=== PATIENT | male | born 1985 | race Caucasian/White ===

== ENCOUNTER 2023-11-15 11:22 | Emergency (ER) | payer OTHER ==
[2023-11-15 11:46] VITALS: TEMP 98
[2023-11-15] MEDS ORDERED: diphenhydrAMINE 50 MG/ML 1 ML VIAL IVP STA (11:53)
[2023-11-15] MEDS ORDERED: SODIUM CHLORIDE 0.9% 1,000 ML IV ONE (11:56)
[2023-11-15] MEDS ORDERED: PROCHLORPERAZINE INJ 10 MG/2 ML VIAL IVP STA (11:57)
[2023-11-15] MEDS ORDERED: methylPREDNISolone SOD SUCCI 125 MG/2 ML VIAL IV STA (11:59)
--- NOTE | 2023-11-15 12:07 | ED ---
General Adult HPI - General Chief complaint: Neuro Symptoms/Deficit Stated complaint: dizziness-vision issue Time Seen by Provider: 11/15/23 11:31 Source: patient, RN notes reviewed Mode of arrival: ambulatory Limitations: no limitations - History of Present Illness Initial comments: 38 year old male presents to the emergency department for evaluation of headache x3-4 days. Patient states that he does not recall what he was doing and the headache came on. He does have a history of headaches and states this is similar in character to his prior. Denies nausea, vomiting. He does admit to some lightheadedness. He is ambulating well. He denies recent fever, chills. Denies recent head trauma. - Related Data Allergies Allergy/AdvReac Type Severity Reaction Status Date / Time No Known Allergies Allergy Verified 11/15/23 11:28 Review of Systems ROS Statement: Those systems with pertinent positive or pertinent negative responses have been documented in the HPI. ROS Other: All systems not noted in ROS Statement are negative. Past Medical History Past Medical History: Hypertension, Seizure Disorder History of Any Multi-Drug Resistant Organisms: None Reported Past Surgical History: No Surgical Hx Reported Additional Past Surgical History / Comment(s): hernia mesh Past Psychological History: No Psychological Hx Reported Smoking Status: Current every day smoker Past Alcohol Use History: None Reported Past Drug Use History: None Reported General Exam Limitations: no limitations General appearance: alert, in no apparent distress Head exam: Present: atraumatic, normocephalic, normal inspection Eye exam: Present: normal appearance, PERRL, EOMI. Absent: scleral icterus, conjunctival injection, periorbital swelling ENT exam: Present: normal exam, mucous membranes moist Neck exam: Present: normal inspection. Absent: tenderness, meningismus, lymphadenopathy Respiratory exam: Present: normal lung sounds bilaterally. Absent: respiratory distress, wheezes, rales, rhonchi, stridor Cardiovascular Exam: Present: regular rate, normal rhythm, normal heart sounds. Absent: systolic murmur, diastolic murmur, rubs, gallop, clicks GI/Abdominal exam: Present: soft, normal bowel sounds. Absent: distended, tenderness, guarding, rebound, rigid Extremities exam: Present: normal inspection, full ROM, normal capillary refill. Absent: tenderness, pedal edema, joint swelling, calf tenderness Back exam: Present: normal inspection Neurological exam: Present: alert, oriented X3, CN II-XII intact, normal gait Expanded Patient oriented to: Present: person, place, time Speech: Present: fluid speech Cranial nerves: EOM's Intact: Normal, Gag Reflex: Normal, Tongue Deviation: Normal (none), Nystagmus: Normal (none), Facial Sensation: Normal Ataxia: Absent: yes Cerebellar function: Finger to Nose: Normal, Heel to Clement: Normal Upper motor neuron: Pronator Drift: Normal Sensory exam: Upper Extremity Light Touch: Normal, Lower Extremity Light Touch: Normal Motor strength exam: RUE: 5, LUE: 5, RLE: 5, LLE: 5 Eye Response: (4) open spontaneously Motor Response: (6) obeys commands Verbal Response: (5) oriented [place] Total: 15 Course Vital Signs 11/15/23 11/15/23 11/15/23 11:25 13:24 15:33 Temperature 98 F Pulse Rate 82 76 83 Respiratory 18 18 17 Rate Blood Pressure 131/80 133/91 109/63 O2 Sat by Pulse 99 97 98 Oximetry Medical Decision Making - Medical Decision Making Was pt. sent in by a medical professional or institution (Dr. PA, CLAY DRY PRESS MIXER OPERATOR, urgent care, hospital, or prison...) When possible be specific @ -No Did you speak to anyone other than the patient for history (EMS, parent, family, police, friend...)? What history was obtained from this source @ -patients girlfriend Did you review nursing and triage notes (agree or disagree)? Why? @ -I reviewed and agree with nursing and triage notes Were old charts reviewed (outside hosp., previous admission, EMS record, old EKG, old radiological studies, urgent care reports/EKG's, prison records)? Report findings @ -No old charts were reviewed Differential Diagnosis (chest pain, altered mental status, abdominal pain women, abdominal pain men, vaginal bleeding, weakness, fever, dyspnea, syncope, headache, dizziness, GI bleed, back pain, seizure, CVA, palpatations, mental health, musculoskeletal)? @ -Differential Headache: Migraine, tension, cluster, carbon monoxide, central venous thrombosis, pension karma temporal arteritis, acute closure glaucoma, intercranial hemorrhage, mastoiditis, sinusitis, head injury, this is not meant to be an all-inclusive list. EKG interpreted by me (3pts min.). @ -EKG at 1246 shows sinus rhythm rate 79, [place] 145, QRS 105, QTQTc [id number] X-rays interpreted by me (1pt min.). @ -X-ray shows no acute infiltrate CT interpreted by me (1pt min.). @ -CT brain shows no acute intracranial hemorrhage U/S interpreted by me (1pt. min.). @ -None done What testing was considered but not performed or refused? (CT, X-rays, U/S, labs)? Why? @ -None What meds were considered but not given or refused? Why? @ -None Did you discuss the management of the patient with other professionals (professionals i.e. , PA, CLAY DRY PRESS MIXER OPERATOR, lab, RT, psych nurse, social service agency director, easement worker, teacher, chief environmental commitment officer, case aide)? Give summary @ -No Was smoking cessation discussed for >3mins.? @ -No Was critical care preformed (if so, how long)? @ -No Were there social determinants of health that impacted care today? How? (Homelessness, low income, unemployed, alcoholism, drug addiction, transportation, low edu. Level, literacy, decrease access to med. care, nursing home, rehab)? @ -No Was there de-escalation of care discussed even if they declined (Discuss DNR or withdrawal of care, Hospice)? DNR status @ -No What co-morbidities impacted this encounter? (DM, HTN, Smoking, COPD, CAD, Cancer, CVA, ARF, Chemo, Hep., AIDS, mental health diagnosis, sleep apnea, morbid obesity)? @ -None Was patient admitted / discharged? Hospital course, mention meds given and route, prescriptions, significant lab abnormalities, going to OR and other pertinent info. @ -discharged. Patient presented to the emergency department for evaluation of headache and lightheadedness. CT brain is obtained which shows no acute intr acranial hemorrhage. Laboratory studies obtained which were actually unremarkable including CBC, CMP, UA. EKG obtained which shows normal sinus rhythm. Patient was given 1 L normal saline, Benadryl, Compazine, and Solu- Medrol with minimal relief. The patient was given a dose of Toradol after his computed tomography scan report. Patient was reevaluated, neurologically intact. The pain had improved. Patient will be discharged home. Patient understanding and agreeable with plan. Return precautions discussed. Patient stable at time of discharge. Case discussed with Dr. Randall Undiagnosed new problem with uncertain prognosis? @ -No Drug Therapy requiring intensive monitoring for toxicity (Heparin, Nitro, Insulin, Cardizem)? @ -No Were any procedures done? @ -No Diagnosis/symptom? @ -headache Acute, or Chronic, or Acute on Chronic? @ -acute Uncomplicated (without systemic symptoms) or Complicated (systemic symptoms)? @ -uncomplicated Side effects of treatment? @ -No Exacerbation, Progression, or Severe Exacerbation? @ -No Poses a threat to life or bodily function? How? (Chest pain, [place], [place], pneumonia, PE, COPD, DKA, ARF, appy, cholecystitis, CVA, Diverticulitis, Homicidal, Suicidal, threat to staff... and all critical care pts) @ -No - Lab Data Result diagrams: 11/15/23 12:20 11/15/23 12:20 Lab Results 11/15/23 11/15/23 11/15/23 Range/Units 12:20 12:20 12:20 WBC 10.2 (3.8-10.6) k/uL RBC 4.77 (4.30-5.90) m/uL Hgb 14.9 (13.0-17.5) gm/dL Hct 42.5 (39.0-53.0) % MCV 89.1 (80.0-100.0) fL MCH 31.1 (25.0-35.0) pg MCHC 34.9 (31.0-37.0) g/dL RDW 12.6 (11.5-15.5) % Plt Count 237 (150-450) k/uL MPV 7.7 Neutrophils % 76 % Lymphocytes % 17 % Monocytes % 4 % Eosinophils % 1 % Basophils % 1 % Neutrophils # 7.7 (1.3-7.7) k/uL Lymphocytes # 1.8 (1.0-4.8) k/uL Monocytes # 0.4 (0-1.0) k/uL Eosinophils # 0.1 (0-0.7) k/uL Basophils # 0.1 (0-0.2) k/uL PT 10.2 (10.0-12.5) sec INR 0.9 (<1.2) APTT 25.1 (22.0-30.0) sec Sodium 138 (137-145) mmol/L Potassium 3.8 (3.5-5.1) mmol/L Chloride 102 (98-107) mmol/L Carbon Dioxide 26 (22-30) mmol/L Anion Gap 10 mmol/L BUN 6 L (9-20) mg/dL Creatinine 0.71 (0.66-1.25) mg/dL Est GFR (CKD-EPI)AfAm >90 (>60 ml/min/1.73 sqM) Est GFR (CKD-EPI)NonAf >90 (>60 ml/min/1.73 sqM) Glucose 93 (74-99) mg/dL Calcium 9.7 (8.4-10.2) mg/dL Total Bilirubin 0.3 (0.2-1.3) mg/dL AST 21 (17-59) U/L ALT 22 (4-49) U/L Alkaline Phosphatase 71 (38-126) U/L Total Protein 7.2 (6.3-8.2) g/dL Albumin 4.3 (3.5-5.0) g/dL Urine Color Urine Appearance (Clear) Urine pH (5.0-8.0) Ur Specific [place] (1.001-1.035) Urine Protein (Negative) Urine Glucose (UA) (Negative) Urine Ketones (Negative) Urine Blood (Negative) Urine Nitrite (Negative) Urine Bilirubin (Negative) Urine Urobilinogen (<2.0) mg/dL Ur Leukocyte Esterase (Negative) 11/15/23 Range/Units 12:20 WBC (3.8-10.6) k/uL RBC (4.30-5.90) m/uL Hgb (13.0-17.5) gm/dL Hct (39.0-53.0) % MCV (80.0-100.0) fL MCH (25.0-35.0) pg MCHC (31.0-37.0) g/dL RDW (11.5-15.5) % Plt Count (150-450) k/uL MPV Neutrophils % % Lymphocytes % % Monocytes % % Eosinophils % % Basophils % % Neutrophils # (1.3-7.7) k/uL Lymphocytes # (1.0-4.8) k/uL Monocytes # (0-1.0) k/uL Eosinophils # (0-0.7) k/uL Basophils # (0-0.2) k/uL PT (10.0-12.5) sec INR (<1.2) APTT (22.0-30.0) sec Sodium (137-145) mmol/L Potassium (3.5-5.1) mmol/L Chloride (98-107) mmol/L Carbon Dioxide (22-30) mmol/L Anion Gap mmol/L BUN (9-20) mg/dL Creatinine (0.66-1.25) mg/dL Est GFR (CKD-EPI)AfAm (>60 ml/min/1.73 sqM) Est GFR (CKD-EPI)NonAf (>60 ml/min/1.73 sqM) Glucose (74-99) mg/dL Calcium (8.4-10.2) mg/dL Total Bilirubin (0.2-1.3) mg/dL AST (17-59) U/L ALT (4-49) U/L Alkaline Phosphatase (38-126) U/L Total Protein (6.3-8.2) g/dL Albumin (3.5-5.0) g/dL Urine Color Colorless Urine Appearance Clear (Clear) Urine pH 6.5 (5.0-8.0) Ur Specific [place] 1.003 (1.001-1.035) Urine Protein Negative (Negative) Urine Glucose (UA) Negative (Negative) Urine Ketones Negative (Negative) Urine Blood Negative (Negative) Urine Nitrite Negative (Negative) Urine Bilirubin Negative (Negative) Urine Urobilinogen <2.0 (<2.0) mg/dL Ur Leukocyte Esterase Negative (Negative) Disposition Clinical Impression: Headache Disposition: HOME SELF-CARE Condition: Stable Instructions (If sedation given, give patient instructions): Acute Headache (ED) Additional Instructions: Please follow up with your primary care provider. Return to the emergency department for new or worsening symptoms. Is patient prescribed a controlled substance at d/c from ED?: No Referrals: John Rivas MD [Primary Care Provider] - 1-2 days
[2023-11-15 13:02] LABS: Basophils # (A) 0.1 k/uL (0-0.2); Basophils % (A) 1 %; Eosinophils # (A) 0.1 k/uL (0-0.7); Eosinophils % (A) 1 %; HCT 42.5 % (39.0-53.0); HGB 14.9 gm/dL (13.0-17.5); Lymphocytes # (A) 1.8 k/uL (1.0-4.8); Lymphocytes % (A) 17 %; MCH 31.1 pg (25.0-35.0); MCHC 34.9 g/dL (31.0-37.0); MCV 89.1 fL (80.0-100.0); Mean Platelet Volume 7.7; Monocytes # (A) 0.4 k/uL (0-1.0); Monocytes % (A) 4 %; Neutrophils # (A) 7.7 k/uL (1.3-7.7); Neutrophils % (A) 76 %; Platelet Count 237 k/uL (150-450); RBC 4.77 m/uL (4.30-5.90); RDW 12.6 % (11.5-15.5); WBC 10.2 k/uL (3.8-10.6)
[2023-11-15 13:04] LABS: ALT 22 U/L (4-49); AST 21 U/L (17-59); African American GFR (CKD) >90 (>60 ml/min/1.73 sqM); Albumin 4.3 g/dL (3.5-5.0); Alkaline Phosphatase 71 U/L (38-126); Anion Gap 10 mmol/L; Blood Urea Nitrogen 6 mg/dL (9-20); Calcium 9.7 mg/dL (8.4-10.2); Carbon Dioxide 26 mmol/L (22-30); Chloride 102 mmol/L (98-107); Glucose 93 mg/dL (74-99); Non-African American GFR(CKD) >90 (>60 ml/min/1.73 sqM); Potassium 3.8 mmol/L (3.5-5.1); Sodium 138 mmol/L (137-145); Total Bilirubin 0.3 mg/dL (0.2-1.3); Total Protein 7.2 g/dL (6.3-8.2)
[2023-11-15 13:12] LABS: INR 0.9 (<1.2); Partial Thromboplastin Time 25.1 sec (22.0-30.0); Prothrombin Time 10.2 sec (10.0-12.5)
--- NOTE | 2023-11-15 13:38 | CT ---
EXAMINATION TYPE: CT brain wo con DATE OF EXAM: 11/15/2023 COMPARISON: None INDICATION: Headache, weakness, pt said his regular dr thinks he has lesions on his brain DLP: 1196.4 mGycm, Automated exposure control for dose reduction was used. CONTRAST: None CT of the brain is performed utilizing 3 mm thick sections through the posterior fossa and 3 mm thick sections through the remaining calvarium. Study is performed within 24 hours of arrival to the hosp ital. No abnormal hyperdensity is present to suggest an acute intracranial hemorrhage. No mass lesion is evident. No acute infarcts are evident. Ventricles and sulci are appropriate for the patient age. Paranasal sinuses and mastoid air cells within the pliks-io-hogl are clear. IMPRESSION: 1. No acute intracranial process radiographically apparent. Follow-up MRI can be performed as clini dinorah indicated.
[2023-11-15 13:50] LABS: Appearance,Urine Clear (Clear); Bilirubin,Urine Negative (Negative); Blood,Urine Negative (Negative); Color,Urine Colorless; Glucose,Urine (UA) Negative (Negative); Ketones,Urine Negative (Negative); Leukocyte Esterase,Urine Negative (Negative); Nitrite,Urine Negative (Negative); PH, Urine 6.5 (5.0-8.0); Protein,Urine Negative (Negative); Specific Gravity,Urine 1.003 (1.001-1.035); Urobilinogen,Urine <2.0 mg/dL (<2.0)
[2023-11-15] MEDS ORDERED: KETOROLAC 15 MG/ML 1 ML VIAL IVP STA (14:17)
--- NOTE | 2023-11-15 15:19 | XR ---
EXAMINATION TYPE: XR chest 2V DATE OF EXAM: 11/15/2023 2:49 PM CLINICAL INDICATION:Male, 38 years old with history of cough; [facility] COMPARISON: None TECHNIQUE: XR chest 2V. Frontal and lateral views of the chest.. FINDINGS: Lines/Tubes/Devices: EKG leads overlie the chest. No indwelling lines are seen. Heart/mediastinum: Heart size is normal. Mediastinum appears normal. Pulmonary vascularity: Not increased, Lungs/Pleura: There is no evidence of pleural effusion, focal consolidation, or pneumothorax. Minimal platelike atelectasis suggested in the right mid to lower lung. Musculoskeletal: No acute osseous abnormality demonstrated in the limits of the exam. Mild asymmetri c elevation of the right hemidiaphragm. Other findings: None. IMPRESSION: No acute cardiopulmonary abnormality.
[2023-11-15 15:46] VITALS: BP 109/63; PULSE 83; RESP 17
== END 2023-11-15 15:35 | disposition home or self-care (01) ==
LOC: EC 11:22
DX: R51.9 Headache, unspecified (principal); I10 Essential (primary) hypertension; F17.200 Nicotine dependence, unspecified, uncomplicated
CPT/HCPCS: 36415; 93005; 80053; 85025; 85610; 85730; 81003; 71046; 70450; 99284; 96374; 96375 ×3; 96361; J1200; J0780; J2930; J1885

== ENCOUNTER 2023-12-19 20:32 | Inpatient (IN) | payer OTHER ==
[2023-12-19 20:50] LABS: Glucose,Whole Blood 96 mg/dL (70-110)
[2023-12-19] MEDS: diphenhydrAMINE 50 MG/ML 1 ML VIAL IVP STA (21:13)
[2023-12-19] MEDS: LORazepam 2 MG/ML INJ IV STA (21:41)
--- NOTE | 2023-12-19 21:51 | CT ---
EXAMINATION TYPE: CT brain wo con CT DLP: 2390.4 mGycm, Automated exposure control for dose reduction was used. DATE OF EXAM: 12/19/2023 9:33 PM COMPARISON: 11/15/2023. CLINICAL INDICATION:Male, 38 years old with history of Seizure, Seizure activity TECHNIQUE: Brain: Axial CT images of the brain were obtained with coronal and sagittal reformats created and rev iewed. Contrast used: None. Oral contrast used: None. FINDINGS: Brain: Extra-axial spaces: No abnormal extra-axial fluid collections. Ventricular system: Within normal limits Cerebral parenchyma: No acute intraparenchymal hemorrhage or mass effect. The tinajero-white junction is well differentiated. Cerebellum: Unremarkable. Mass effect: No evidence of midline shift. Intracranial vasculature: unremarkable Soft tissues: Normal. Calvarium/osseous structures: No depressed skull fracture. Paranasal sinuses and mastoid air cells: Mild scattered paranasal sinus disease. Visualized orbits: Orbital contents are intact. IMPRESSION: No acute intracranial process.
[2023-12-19 22:01] LABS: Basophils % (A) 1 %; Eosinophils # (A) 0.2 k/uL (0-0.7); Eosinophils % (A) 4 %; HCT 41.8 % (39.0-53.0); HGB 14.4 gm/dL (13.0-17.5); Lymphocytes # (A) 2.5 k/uL (1.0-4.8); Lymphocytes % (A) 41 %; MCH 31.2 pg (25.0-35.0); MCHC 34.4 g/dL (31.0-37.0); Mean Platelet Volume 8.1; Monocytes # (A) 0.4 k/uL (0-1.0); Monocytes % (A) 6 %; Neutrophils # (A) 2.9 k/uL (1.3-7.7); Neutrophils % (A) 47 %; Platelet Count 176 k/uL (150-450); RDW 12.6 % (11.5-15.5); WBC 6.1 k/uL (3.8-10.6)
--- NOTE | 2023-12-19 22:05 | ED ---
Seizure HPI - General Source: family, EMS Mode of arrival: EMS Limitations: no limitations - History of Present Illness MD Complaint: seizure, other <Shivam Marinelli - Last Filed: 12/19/23 23:03> - General Source: family, RN notes reviewed, old records reviewed <WiltonEnoch - Last Filed: 12/20/23 07:50> - General Chief Complaint: Seizure Stated Complaint: Seizure Time Seen by Provider: 12/19/23 21:03 - History of Present Illness Initial Comments: 37-year-old male brought in by EMS with reports of a seizure and altered mental status afterwards. No trauma reported minimal information initially available. After the patient's arrived she did state that she believes the patient took an overdose of amitriptyline and he has previously tried recently to overdose on Depakote and other medication. (Shivam Marinelli) - Related Data Home Medications Medication Instructions Recorded Confirmed Acetaminophen/Caffeine [Excedrin 2 tab PO Q6H PRN 12/19/23 12/19/23 Tension Headache] Amitriptyline HCl [Elavil] 25 mg PO HS 12/19/23 12/19/23 Butalb/Acetaminophen/Caffeine 1 tab PO Q8H PRN 12/19/23 12/19/23 [Fioricet 50-325-40] Ergocalciferol [Vitamin D2 (1250 1,250 mcg PO Q7D 12/19/23 12/19/23 Mcg = 11484 Iu)] Fluticasone Nasal [place] [Flonase 1 spr EA NOSTRIL DAILY 12/19/23 12/19/23 Nasal [place]] Loratadine [Claritin] 10 mg PO DAILY 12/19/23 12/19/23 Propranolol HCl [Propranolol HCl 80 mg PO DAILY 12/19/23 12/19/23 ER] Topiramate [Topamax] 100 mg PO BID 12/19/23 12/19/23 Valproic Acid [Depakene] 1,000 mg PO Q12H 12/19/23 12/19/23 levETIRAcetam [Keppra] 500 mg PO BID 12/19/23 12/19/23 lisinopriL [Zestril] 10 mg PO DAILY 12/19/23 12/19/23 Allergies Allergy/AdvReac Type Severity Reaction Status Date / Time No Known Allergies Allergy Verified 12/19/23 20:43 Review of Systems ROS Other: All systems not noted in ROS Statement are negative. Limitations: ROS unobtainable due to patients medical condition <Shivam Marinelli - Last Filed: 12/19/23 23:03> ROS Other: All systems not noted in ROS Statement are negative. <WiltonEnoch - Last Filed: 12/20/23 07:50> ROS Statement: Those systems with pertinent positive or pertinent negative responses have been documented in the HPI. Past Medical History Past Medical History: Hypertension, Seizure Disorder History of Any Multi-Drug Resistant Organisms: None Reported Past Surgical History: No Surgical Hx Reported Additional Past Surgical History / Comment(s): hernia mesh Past Psychological History: No Psychological Hx Reported Smoking Status: Current every day smoker Past Alcohol Use History: None Reported Past Drug Use History: None Reported <Shivam Marinelli - Last Filed: 12/19/23 23:03> General Exam Limitations: no limitations General appearance: obtunded Head exam: Present: atraumatic, normocephalic, normal inspection Eye exam: Present: normal appearance, PERRL, EOMI. Absent: scleral icterus, conjunctival injection, periorbital swelling ENT exam: Present: normal exam, mucous membranes moist Neck exam: Present: normal inspection, full ROM, other (No stridor JVD or bruits). Absent: tenderness, meningismus, lymphadenopathy Respiratory exam: Present: normal lung sounds bilaterally. Absent: respiratory distress, wheezes, rales, rhonchi, stridor Cardiovascular Exam: Present: tachycardia GI/Abdominal exam: Present: soft, normal bowel sounds. Absent: distended, tenderness, guarding, rebound, rigid, bruit, pulsatile mass Rectal exam: Present: deferred Extremities exam: Present: normal inspection, full ROM, normal capillary refill. Absent: tenderness, pedal edema, joint swelling, calf tenderness Back exam: Present: normal inspection Neurological exam: Present: altered. Absent: motor sensory deficit Psychiatric exam: Present: other (Unable to evaluate) Skin exam: Present: warm, dry, intact, normal color. Absent: rash <YvesShivam - Last Filed: 12/19/23 23:03> - General Exam Comments Initial Comments: Is a well-developed well-nourished unresponsive male he does respond this painful stimulus however. He does demonstrate some extraparametal type signs. (Shivam Marinelli) Course <Shivam Marinelli - Last Filed: 12/19/23 23:03> Vital Signs 12/19/23 12/19/23 12/19/23 20:36 20:47 20:54 Temperature 96.9 F L Pulse Rate 146 H 159 H 134 H Respiratory 26 H 26 H 20 Rate Blood Pressure 156/113 138/107 138/107 O2 Sat by Pulse 98 98 97 Oximetry Fraction of Inspired Oxygen (FIO2) 12/19/23 12/19/23 12/19/23 22:30 23:00 23:30 Temperature Pulse Rate 138 H 131 H 128 H Respiratory 12 18 12 Rate Blood Pressure 160/107 118/86 O2 Sat by Pulse 96 98 97 Oximetry Fraction of Inspired Oxygen (FIO2) 12/19/23 12/20/23 12/20/23 23:55 00:07 00:47 Temperature Pulse Rate Respiratory Rate Blood Pressure O2 Sat by Pulse Oximetry Fraction of 100 100 50 Inspired Oxygen (FIO2) 12/20/23 12/20/23 12/20/23 01:21 01:30 01:45 Temperature 97.6 F Pulse Rate 108 H 106 H 104 H Respiratory 20 21 24 Rate Blood Pressure 121/92 121/92 117/84 O2 Sat by Pulse 99 99 99 Oximetry Fraction of Inspired Oxygen (FIO2) 12/20/23 12/20/23 12/20/23 02:30 02:45 03:00 Temperature Pulse Rate 92 91 89 Respiratory 30 H 33 H 33 H Rate Blood Pressure 111/78 110/76 110/76 O2 Sat by Pulse 99 99 99 Oximetry Fraction of Inspired Oxygen (FIO2) 12/20/23 12/20/23 12/20/23 03:15 03:45 04:15 Temperature Pulse Rate 87 83 81 Respiratory 29 H 28 H 25 H Rate Blood Pressure 112/80 113/81 113/86 O2 Sat by Pulse 99 99 100 Oximetry Fraction of Inspired Oxygen (FIO2) 12/20/23 12/20/23 12/20/23 04:45 04:53 05:30 Temperature Pulse Rate 77 75 72 Respiratory 28 H 17 33 H Rate Blood Pressure 115/88 115/88 123/90 O2 Sat by Pulse 100 100 100 Oximetry Fraction of Inspired Oxygen (FIO2) 12/20/23 12/20/23 12/20/23 06:00 07:00 07:27 Temperature 97.3 F L Pulse Rate 72 73 Respiratory 20 20 Rate Blood Pressure 133/97 104/79 O2 Sat by Pulse 100 100 Oximetry Fraction of 40 Inspired Oxygen (FIO2) 12/20/23 07:30 Temperature Pulse Rate 72 Respiratory 20 Rate Blood Pressure 109/82 O2 Sat by Pulse 100 Oximetry Fraction of Inspired Oxygen (FIO2) - Reevaluation(s) Reevaluation #1: 12/19/23 23:03 The patient's care will be endorsed to Dr. Núñez at shift change (Shivam Marinelli) Procedures - Intubation Sedative: Etomidate Mg Given: 20 Paralytic: Rocuronium Mg Given: 50 Laryngoscope: other (glidescope) Size: 4 ET Tube Size: 8 Tube Secured Depth (cm): 26 Tube Secured Location: lips Tube Placement Confirmation: visualized tube passing through cords, equal breath sounds bilaterally, no breath sounds over epigastrium, confirmation by capnometry Patient Tolerated Procedure: no complications <Enoch Núñez - Last Filed: 12/20/23 07:50> Medical Decision Making - Lab Data Result diagrams: 12/19/23 21:16 12/19/23 21:16 - EKG Data -: EKG Interpreted by Me <Shivam Marinelli - Last Filed: 12/19/23 23:03> - Lab Data Result diagrams: 12/19/23 21:16 12/19/23 21:16 - EKG Data -: EKG Interpreted by Me <Enoch Núñez - Last Filed: 12/20/23 07:50> - Medical Decision Making Was pt. sent in by a medical professional or institution (, PA, FOOD PRODUCTION ASSOCIATE, urgent care, hospital, or detention...) When possible be specific @ -No Did you speak to anyone other than the patient for history (EMS, parent, family, police, friend...)? What history was obtained from this source @ -Yes, patient's significant other who provided most of the patient's past medical history. Did you review nursing and triage notes (agree or disagree)? Why? @ -I reviewed and agree with nursing and triage notes Were old charts reviewed (outside hosp., previous admission, EMS record, old EKG, old radiological studies, urgent care reports/EKG's, detention records)? Report findings @ -Old charts reviewed including EKG Differential Diagnosis (chest pain, altered mental status, abdominal pain women, abdominal pain men, vaginal bleeding, weakness, fever, dyspnea, syncope, headache, dizziness, GI bleed, back pain, seizure, CVA, palpatations, mental health, musculoskeletal)? @ -Differential Altered Mental Status: Hypoglycemia, DKA, hypercapnia, ETOH, overdose, CO poisoning, trauma, myxedema coma, HTN encephalopathy, infection, encephalitis, psychosis, intercranial hemorrhage, hepatic encephalopathy, meningitis, CVA, this is not meant to be an all-inclusive list EKG interpreted by me (3pts min.). @ -As above X-rays interpreted by me (1pt min.). @ -Preintubation chest x-ray as well as KUB x-ray unremarkable for any obvious acute abnormality. Postintubation chest x-ray shows adequate placement of the ET tube and NG tube. CT interpreted by me (1pt min.). @ -CT brain reveals no evidence of acute intracranial process. U/S interpreted by me (1pt. min.). @ -None done What testing was considered but not performed or refused? (CT, X-rays, U/S, labs)? Why? @ -None What meds were considered but not given or refused? Why? @ -None Did you discuss the management of the patient with other professionals (professionals i.e. , PA, FOOD PRODUCTION ASSOCIATE, lab, RT, psych nurse, social service manager, set up operator, teacher, personal banking officer, manager case management)? Give summary @ -I discussed with Dr. Elliott of ICU after evaluated the patient myself as well as the labs and EKG. We are both in agreement of intubation for the patient as his GCS at best is 9. Concern for airway protection at this time. He was also in agreement with the plan for bicarb pushes, as well as starting a bicarb drip. He accepted the patient to the ICU. I spoke with the admitting team, CHARLIE Little of [facility] who accepted the patient. Was smoking cessation discussed for >3mins.? @ -No Was critical care preformed (if so, how long)? @ -Yes, 35 minutes. Were there social determinants of health that impacted care today? How? (Homelessness, low income, unemployed, alcoholism, drug addiction, transportation, low edu. Level, literacy, decrease access to med. care, fdc, rehab)? @ -No Was there de-escalation of care discussed even if they declined (Discuss DNR or withdrawal of care, Hospice)? DNR status @ -No What co-morbidities impacted this encounter? (DM, HTN, Smoking, COPD, CAD, Cancer, CVA, ARF, Chemo, Hep., AIDS, mental health diagnosis, sleep apnea, morbid obesity)? @ -Prior overdose attempts Was patient admitted / discharged? Hospital course, mention meds given and route, prescriptions, significant lab abnormalities, going to OR and other pertinent info. @ -Patient signed out to me pending results of workup. I inherited care shortly after 2300. I reviewed the workup, as well as EKG findings after they obtain the new EKG. Patient's difficult other is now at bedside and is able provide history. She is concerned that the patient overdosed on his amitriptyline, as he was taking pills of it earlier and just recently got a new prescription in the last 2 days. He is supposed to take 25 mg nightly however patient's mother is concerned as she saw him taking multiple pills of it earlier when he left the house. She did not see him again until after he arrived here. The pill bottle is missing. It was 1 month prescription of 25 mg nightly amitriptyline. Patient has multiple suicide attempts via overdose in the last month. Presents for further evaluation.If patient took all these pills, then he would have taken a total of 750 mg of amitriptyline.Patient has agitation, possible breakthrough seizure, tachycardia, right bundle branch block morphology, prolonged QRS, as well as pupils are dilated to approximately 4 mm. All of these are signs and symptoms of a TCA overdose. Is consistent with the story from patient's can other as well as the UDS being positive for TCAs. Poison control has been consulted over concern for this however EKG does show prolonged QRS as well as what appears to be development of an incomplete right bundle branch block, both concerning for TCA overdose. Patient's laboratory studies are remarkable for decreased carbon dioxide of 18, as well as a positive UDS for TCA. Remainder the labs within acceptable limits. I discussed with Dr. Elliott of ICU after evaluated the patient myself as well as the labs and EKG. We are both in agreement of intubation for the patient as his GCS at best is 9. Concern for airway protection at this time. He was also in agreement with the plan for bicarb pushes, as well as starting a bicarb drip. He accepted the patient to the ICU. I spoke with the admitting team, CHARLIE Little of [facility] who accepted the patient. Patient successfully intubated for airway protection with NG tube in place. He was started on a propofol drip. Will continue the bicarb drip. Patient has multiple peripheral IVs. He will be admitted to the ICU. Poison control is aw are of admission and intubation. Undiagnosed new problem with uncertain prognosis? @ -No Drug Therapy requiring intensive monitoring for toxicity (Heparin, Nitro, Insulin, Cardizem)? @ -No Were any procedures done? @ -Intubation Diagnosis/symptom? @ -TCA overdose, altered mental status, intentional overdose, seizure activity Acute, or Chronic, or Acute on Chronic? @ -Acute Uncomplicated (without systemic symptoms) or Complicated (systemic symptoms)? @ -Complicated Side effects of treatment? @ -No Exacerbation, Progression, or Severe Exacerbation? @ -No Poses a threat to life or bodily function? How? (Chest pain, USA, MS, pneumonia, PE, COPD, DKA, ARF, appy, cholecystitis, CVA, Diverticulitis, Homicidal, Suicidal, threat to staff... and all critical care pts) @ -Yes (Enoch Núñez) - Lab Data Lab Results 12/19/23 12/19/23 12/19/23 Range/Units 20:49 21:16 21:16 WBC 6.1 (3.8-10.6) k/uL RBC 4.60 (4.30-5.90) m/uL Hgb 14.4 (13.0-17.5) gm/dL Hct 41.8 (39.0-53.0) % MCV 91.0 (80.0-100.0) fL MCH 31.2 (25.0-35.0) pg MCHC 34.4 (31.0-37.0) g/dL RDW 12.6 (11.5-15.5) % Plt Count 176 (150-450) k/uL MPV 8.1 Neutrophils % 47 % Lymphocytes % 41 % Monocytes % 6 % Eosinophils % 4 % Basophils % 1 % Neutrophils # 2.9 (1.3-7.7) k/uL Lymphocytes # 2.5 (1.0-4.8) k/uL Monocytes # 0.4 (0-1.0) k/uL Eosinophils # 0.2 (0-0.7) k/uL Basophils # 0.0 (0-0.2) k/uL Sodium (137-145) mmol/L Potassium (3.5-5.1) mmol/L Chloride (98-107) mmol/L Carbon Dioxide (22-30) mmol/L Anion Gap mmol/L BUN (9-20) mg/dL Creatinine (0.66-1.25) mg/dL Est GFR (CKD-EPI)AfAm (>60 ml/min/1.73 sqM) Est GFR (CKD-EPI)NonAf (>60 ml/min/1.73 sqM) Glucose (74-99) mg/dL POC Glucose (mg/dL) 96 (70-110) mg/dL POC Glu Screw Machine Adjuster Automatic ID Christiano Diallo Plasma Lactic Acid Emre (0.7-2.0) mmol/L Calcium (8.4-10.2) mg/dL Magnesium (1.6-2.3) mg/dL Total Bilirubin (0.2-1.3) mg/dL AST (17-59) U/L ALT (4-49) U/L Alkaline Phosphatase (38-126) U/L Ammonia (<30) umol/L Creatine Kinase (55-170) U/L Troponin I (0.000-0.034) ng/mL Total Protein (6.3-8.2) g/dL Albumin (3.5-5.0) g/dL Lipase (23-300) U/L Urine Color Colorless Urine Appearance Clear (Clear) Urine pH 7.0 (5.0-8.0) Ur Specific [place] 1.010 (1.001-1.035) Urine Protein Negative (Negative) Urine Glucose (UA) Negative (Negative) Urine Ketones Negative (Negative) Urine Blood Negative (Negative) Urine Nitrite Negative (Negative) Urine Bilirubin Negative (Negative) Urine Urobilinogen <2.0 (<2.0) mg/dL Ur Leukocyte Esterase Negative (Negative) Salicylates mg/dL Urine Opiates Screen Not Detected (NotDetected) Ur Oxycodone Screen Not Detected (NotDetected) Urine Methadone Screen Not Detected (NotDetected) Acetaminophen ug/mL Ur Barbiturates Screen Not Detected (NotDetected) Valproic Acid ug/mL U Tricyclic Antidepress Detected H (NotDetected) Ur Phencyclidine Scrn Not Detected (NotDetected) Ur Amphetamines Screen Not Detected (NotDetected) U Methamphetamines Scrn Not Detected (NotDetected) U Benzodiazepines Scrn Not Detected (NotDetected) Urine Cocaine Screen Not Detected (NotDetected) U Marijuana (THC) Screen Not Detected (NotDetected) Serum Alcohol mg/dL 12/19/23 12/19/23 12/19/23 Range/Units 21:16 21:16 21:16 WBC (3.8-10.6) k/uL RBC (4.30-5.90) m/uL Hgb (13.0-17.5) gm/dL Hct (39.0-53.0) % MCV (80.0-100.0) fL MCH (25.0-35.0) pg MCHC (31.0-37.0) g/dL RDW (11.5-15.5) % Plt Count (150-450) k/uL MPV Neutrophils % % Lymphocytes % % Monocytes % % Eosinophils % % Basophils % % Neutrophils # (1.3-7.7) k/uL Lymphocytes # (1.0-4.8) k/uL Monocytes # (0-1.0) k/uL Eosinophils # (0-0.7) k/uL Basophils # (0-0.2) k/uL Sodium 140 (137-145) mmol/L Potassium 3.7 (3.5-5.1) mmol/L Chloride 111 H (98-107) mmol/L Carbon Dioxide 18 L (22-30) mmol/L Anion Gap 11 mmol/L BUN 10 (9-20) mg/dL Creatinine 0.79 (0.66-1.25) mg/dL Est GFR (CKD-EPI)AfAm >90 (>60 ml/min/1.73 sqM) Est GFR (CKD-EPI)NonAf >90 (>60 ml/min/1.73 sqM) Glucose 91 (74-99) mg/dL POC Glucose (mg/dL) (70-110) mg/dL POC Glu Screw Machine Adjuster Automatic ID Plasma Lactic Acid Emre 1.2 (0.7-2.0) mmol/L Calcium 9.4 (8.4-10.2) mg/dL Magnesium 2.0 (1.6-2.3) mg/dL Total Bilirubin 0.3 (0.2-1.3) mg/dL AST 20 (17-59) U/L ALT 16 (4-49) U/L Alkaline Phosphatase 66 (38-126) U/L Ammonia (<30) umol/L Creatine Kinase 62 (55-170) U/L Troponin I <0.012 (0.000-0.034) ng/mL Total Protein 7.3 (6.3-8.2) g/dL Albumin 4.5 (3.5-5.0) g/dL Lipase (23-300) U/L Urine Color Urine Appearance (Clear) Urine pH (5.0-8.0) Ur Specific [place] (1.001-1.035) Urine Protein (Negative) Urine Glucose (UA) (Negative) Urine Ketones (Negative) Urine Blood (Negative) Urine Nitrite (Negative) Urine Bilirubin (Negative) Urine Urobilinogen (<2.0) mg/dL Ur Leukocyte Esterase (Negative) Salicylates mg/dL Urine Opiates Screen (NotDetected) Ur Oxycodone Screen (NotDetected) Urine Methadone Screen (NotDetected) Acetaminophen ug/mL Ur Barbiturates Screen (NotDetected) Valproic Acid ug/mL U Tricyclic Antidepress (NotDetected) Ur Phencyclidine Scrn (NotDetected) Ur Amphetamines Screen (NotDetected) U Methamphetamines Scrn (NotDetected) U Benzodiazepines Scrn (NotDetected) Urine Cocaine Screen (NotDetected) U Marijuana (THC) Screen (NotDetected) Serum Alcohol mg/dL 12/19/23 12/19/23 Range/Units 22:30 23:20 WBC (3.8-10.6) k/uL RBC (4.30-5.90) m/uL Hgb (13.0-17.5) gm/dL Hct (39.0-53.0) % MCV (80.0-100.0) fL MCH (25.0-35.0) pg MCHC (31.0-37.0) g/dL RDW (11.5-15.5) % Plt Count (150-450) k/uL MPV Neutrophils % % Lymphocytes % % Monocytes % % Eosinophils % % Basophils % % Neutrophils # (1.3-7.7) k/uL Lymphocytes # (1.0-4.8) k/uL Monocytes # (0-1.0) k/uL Eosinophils # (0-0.7) k/uL Basophils # (0-0.2) k/uL Sodium (137-145) mmol/L Potassium (3.5-5.1) mmol/L Chloride (98-107) mmol/L Carbon Dioxide (22-30) mmol/L Anion Gap mmol/L BUN (9-20) mg/dL Creatinine (0.66-1.25) mg/dL Est GFR (CKD-EPI)AfAm (>60 ml/min/1.73 sqM) Est GFR (CKD-EPI)NonAf (>60 ml/min/1.73 sqM) Glucose (74-99) mg/dL POC Glucose (mg/dL) (70-110) mg/dL POC Glu Screw Machine Adjuster Automatic ID Plasma Lactic Acid Emre (0.7-2.0) mmol/L Calcium (8.4-10.2) mg/dL Magnesium (1.6-2.3) mg/dL Total Bilirubin (0.2-1.3) mg/dL AST (17-59) U/L ALT (4-49) U/L Alkaline Phosphatase (38-126) U/L Ammonia 14 (<30) umol/L Creatine Kinase (55-170) U/L Troponin I (0.000-0.034) ng/mL Total Protein (6.3-8.2) g/dL Albumin (3.5-5.0) g/dL Lipase 55 (23-300) U/L Urine Color Urine Appearance (Clear) Urine pH (5.0-8.0) Ur Specific [place] (1.001-1.035) Urine Protein (Negative) Urine Glucose (UA) (Negative) Urine Ketones (Negative) Urine Blood (Negative) Urine Nitrite (Negative) Urine Bilirubin (Negative) Urine Urobilinogen (<2.0) mg/dL Ur Leukocyte Esterase (Negative) Salicylates <1.0 mg/dL Urine Opiates Screen (NotDetected) Ur Oxycodone Screen (NotDetected) Urine Methadone Screen (NotDetected) Acetaminophen <10.0 ug/mL Ur Barbiturates Screen (NotDetected) Valproic Acid 23.0 ug/mL U Tricyclic Antidepress (NotDetected) Ur Phencyclidine Scrn (NotDetected) Ur Amphetamines Screen (NotDetected) U Methamphetamines Scrn (NotDetected) U Benzodiazepines Scrn (NotDetected) Urine Cocaine Screen (NotDetected) U Marijuana (THC) Screen (NotDetected) Serum Alcohol <10 mg/dL - EKG Data EKG Comments: EKG shows a sinus tachycardia of 143 QRS 120 QT/QTc 309/392 moderate interventricular conduction delay indeterminate axis (Shivam Marinelli) 12-lead Electrocardiogram Interpretation Note EKG was reviewed and interpreted by myself. 12-lead ECG performed at 2324 is interpreted by me as revealing sinus tachycardia at a rate of 122 beats per minute. Incomplete right bundle branch block. PA interval is 173 ms, QRS duration is 113 ms, QTc is 375 ms. [place] is normal.. There were no ST or T wave abnormalities to suggest myocardial ischemia or injury. R wave progression across the precordium was satisfactory. By my interpretation this EKG is non- diagnostic for acute ischemia. (Enoch Núñez) Critical Care Time Critical Care Time: Yes Total Critical Care Time: 35 <Enoch Núñez - Last Filed: 12/20/23 07:50> Disposition <Shivam Marinelli - Last Filed: 12/19/23 23:03> Time of Disposition: 00:01 <Enoch Núñez - Last Filed: 12/20/23 07:50> Clinical Impression: Generalized seizure, Drug overdose, intentional, TCA (tricyclic antidepressant) overdose of undetermined intent, Airway intubation performed without difficulty Disposition: ADMITTED IP TO THIS HOSP Condition: Serious
[2023-12-19 22:36] LABS: ALT 16 U/L (4-49); AST 20 U/L (17-59); African American GFR (CKD) >90 (>60 ml/min/1.73 sqM); Albumin 4.5 g/dL (3.5-5.0); Alkaline Phosphatase 66 U/L (38-126); Anion Gap 11 mmol/L; Blood Urea Nitrogen 10 mg/dL (9-20); Calcium 9.4 mg/dL (8.4-10.2); Carbon Dioxide 18 mmol/L (22-30); Chloride 111 mmol/L (98-107); Creatine Kinase 62 U/L (55-170); Glucose 91 mg/dL (74-99); Non-African American GFR(CKD) >90 (>60 ml/min/1.73 sqM); Potassium 3.7 mmol/L (3.5-5.1); Sodium 140 mmol/L (137-145); Total Bilirubin 0.3 mg/dL (0.2-1.3); Total Protein 7.3 g/dL (6.3-8.2)
[2023-12-19] MEDS: SODIUM CHLORIDE 0.9% 1,000 ML IV STA ×3 (22:38→23:48)
--- NOTE | 2023-12-19 23:33 | XR ---
EXAM: XR Chest, 1 View CLINICAL HISTORY: Overdose TECHNIQUE: Frontal view of the chest. COMPARISON: 11/15/2023. FINDINGS: Hypoventilation. Elevated right hemidiaphragm. Heart is normal in size. Right basilar atelectasis. No pleural effusion or pneumothorax. Bones are unremarkable. IMPRESSION: Hypoventilation. Elevated right hemidiaphragm with overlying right basilar atelectasis.
--- NOTE | 2023-12-19 23:35 | XR ---
EXAM: XR Abdomen, 2 Views CLINICAL HISTORY: Overdose TECHNIQUE: Two supine views of the abdomen/pelvis. COMPARISON: No relevant prior studies available. FINDINGS: No radiopaque foreign body. No bowel obstruction or ileus. No abnormal calcifications. Bones are unremarkable. IMPRESSION: No acute abnormality.
[2023-12-19] MEDS: SODIUM BICARB 8.4% 50 ML SYR (1 MEQ/ML) IV STA ×2 (23:44→23:46)
[2023-12-19 23:53] LABS: Appearance,Urine Clear (Clear); Bilirubin,Urine Negative (Negative); Blood,Urine Negative (Negative); Color,Urine Colorless; Glucose,Urine (UA) Negative (Negative); Ketones,Urine Negative (Negative); Leukocyte Esterase,Urine Negative (Negative); Nitrite,Urine Negative (Negative); Protein,Urine Negative (Negative); Urobilinogen,Urine <2.0 mg/dL (<2.0)
[2023-12-19] MEDS: ONDANSETRON 4 MG/2 ML VIAL IVP STA (23:53)
[2023-12-19] MEDS: ROCURONIUM 10 MG/ML (5 ML VIAL) IV STA (23:55)
[2023-12-19] MEDS: ETOMIDATE 2 MG/ML 10 ML VIAL IVP STA (23:55)
[2023-12-20 00:04] LABS: Acetaminophen <10.0 ug/mL; Alcohol <10 mg/dL; Lipase 55 U/L (23-300); Salicylate <1.0 mg/dL
[2023-12-20] MEDS ORDERED: NALOXONE 0.4 MG/ML 1 ML VIAL IV PRN (00:13)
[2023-12-20] MEDS: DEXTROSE 5% IN WATER 1,000 ML with SODIUM BICARB (1 MEQ/ML) 150 ML IV SCH (00:13)
[2023-12-20 00:14] LABS: Amphetamine Screen,Urine Not Detected (NotDetected); Barbiturate Screen,Urine Not Detected (NotDetected); Benzodiazepines Screen,Urine Not Detected (NotDetected); Cocaine Screen,Urine Not Detected (NotDetected); Methadone Screen, Urine Not Detected (NotDetected); Opiate Screen,Urine Not Detected (NotDetected); Oxycodone Screen, Urine Not Detected (NotDetected); Phencyclidine Screen,Urine Not Detected (NotDetected); Tricyclic Antidepressant,Urine Detected (NotDetected); Urn Cannabinoid Scrn Not Detected (NotDetected)
--- NOTE | 2023-12-20 00:21 | XR ---
EXAM: XR Chest, 1 View CLINICAL HISTORY: XR Reason: Intubation TECHNIQUE: Frontal view of the chest. COMPARISON: November 15, 2023. FINDINGS: Lungs: Small amount of right lung base infiltrate or atelectasis. The lungs are otherwise clear. Pleural space: Unremarkable. No pneumothorax. Heart: Unremarkable. No cardiomegaly. Mediastinum: Unremarkable. Normal mediastinal contour. Bones/joints: Unremarkable. No acute fracture. Tubes, lines and devices: Endotracheal tube tip located 1 cm from the grabiel. The NG tube extends into the stomach. IMPRESSION: 1. Small amount of right lung base infiltrate or atelectasis. The lungs are otherwise clear. 2. Endotracheal tube tip located 1 cm from the grabiel. The NG tube extends into the stomach.
[2023-12-20 00:40] LABS: ABG Base Excess -3.5 mmol/L; ABG HCO3 22 mmol/L (21-25); ABG Oxygen Saturation 99.7 % (94-97); ABG PCO2 39 mmHg (35-45); ABG PH 7.36 (7.35-7.45); ABG PO2 >400 mmHg (83-108); ABG TCO2 23 mmol/L (19-24); Allen Test Performed? Yes
[2023-12-20 05:44] LABS: ABG Base Excess 0.7 mmol/L; ABG HCO3 25 mmol/L (21-25); ABG Oxygen Saturation 99.7 % (94-97); ABG PCO2 38 mmHg (35-45); ABG PH 7.43 (7.35-7.45); ABG PO2 180 mmHg (83-108); ABG TCO2 26 mmol/L (19-24); Allen Test Performed? Yes
[2023-12-20] MEDS: ENOXAPARIN 40 MG/0.4 ML SYRINGE SQ SCH (10:00)
[2023-12-20] MEDS: PANTOPRAZOLE 40 MG/10 ML VIAL IVP SCH (10:04)
[2023-12-20 10:55] LABS: Glucose,Whole Blood 81 mg/dL (70-110)
[2023-12-20] MEDS: DEXMEDETOMIDINE/0.9% NACL(PMX) 400 MCG in EMPTY BAG 1 BAG IV SCH (11:17)
--- NOTE | 2023-12-20 12:01 | XR ---
EXAMINATION TYPE: XR chest 1V portable DATE OF EXAM: 12/20/2023 CLINICAL HISTORY: ET tube placement. TECHNIQUE: Single AP portable upright view of the chest is obtained. COMPARISON: Chest x-ray from one day earlier FINDINGS: Stable positioning of endotracheal and orogastric tubes. Persistent right infrahilar linea r atelectasis. Left lung remains clear. Cardiac silhouette size is stable and within normal limits. O sseous structures are intact. IMPRESSION: 1. Satisfactory positioning of endotracheal and orogastric tubes. 2. Right mid to lower lung linear atelectasis. Left lung is clear.
--- NOTE | 2023-12-20 13:48 | P.CNPUL ---
History of Present Illness Consult date: 12/20/23 Requesting physician: Low Vera Reason for consult: other (ICU management) Chief complaint: Amitriptyline overdose History of present illness: This is a 37-year-old white male with history of depression, history of seizures, brought into the ER yesterday with what seems to be amitriptyline ov erdose. Patient took relatively a dose of 750 mg Toprol according to the ER physician. This was based on the fact that his found the bottle empty, and the patient had previous history of doing the same. In the ER, patient was down there for few hours, and I was notified about this patient late in the evening with his mental status getting worse, and the patient becoming less and less responsive to painful stimuli. Hence I recommended intubating the patient to protect his airways, and to transfer the patient to the ICU. I did see the patient today in the ER and shortly afterward he was transferred to the ICU. Patient is now on assist-control rate of 20 tidal volume 450 FiO2 40%, and PEEP of 5. ABG showed a pO2 of 180 pCO2 38 pH of 7.40. Chest x-ray showed no evidence of infiltrate. Patient is on propofol at 50 mcg/kg/min, he is also receiving sodium bicarb, 3 A in D5W running at 150 cc/h. This morning are pending. ABG this morning was noted. EKG from earlier this morning was also noted slight conduction delay in the QRS Review of Systems ROS unobtainable: due to endotracheal tube Past Medical History Past Medical History: Hypertension, Seizure Disorder History of Any Multi-Drug Resistant Organisms: None Reported Past Surgical History: No Surgical Hx Reported Additional Past Surgical History / Comment(s): hernia mesh Past Psychological History: No Psychological Hx Reported Smoking Status: Current every day smoker Past Alcohol Use History: None Reported Past Drug Use History: None Reported Medications and Allergies Home Medications Medication Instructions Recorded Confirmed Type Acetaminophen/Caffeine [Excedrin 2 tab PO Q6H PRN 12/19/23 12/19/23 History Tension Headache] Amitriptyline HCl [Elavil] 25 mg PO HS 12/19/23 12/19/23 History Butalb/Acetaminophen/Caffeine 1 tab PO Q8H PRN 12/19/23 12/19/23 History [Fioricet 50-325-40] Ergocalciferol [Vitamin D2 (1250 1,250 mcg PO Q7D 12/19/23 12/19/23 History Mcg = 29310 Iu)] Fluticasone Nasal [place] [Flonase 1 spr EA NOSTRIL DAILY 12/19/23 12/19/23 History Nasal [place]] Loratadine [Claritin] 10 mg PO DAILY 12/19/23 12/19/23 History Propranolol HCl [Propranolol HCl 80 mg PO DAILY 12/19/23 12/19/23 History ER] Topiramate [Topamax] 100 mg PO BID 12/19/23 12/19/23 History Valproic Acid [Depakene] 1,000 mg PO Q12H 12/19/23 12/19/23 History levETIRAcetam [Keppra] 500 mg PO BID 12/19/23 12/19/23 History lisinopriL [Zestril] 10 mg PO DAILY 12/19/23 12/19/23 History Allergies Allergy/AdvReac Type Severity Reaction Status Date / Time No Known Allergies Allergy Verified 12/19/23 20:43 Physical Exam Vitals: Vital Signs Temp Pulse Resp BP Pulse Ox FiO2 12/20/23 12:00 77 20 106/78 100 12/20/23 11:30 77 20 114/85 100 12/20/23 11:00 96.5 F L 81 20 120/88 100 40 12/20/23 10:30 106 H 16 112/86 100 12/20/23 10:00 76 20 123/90 100 12/20/23 09:30 73 20 115/84 100 12/20/23 09:00 71 20 116/88 100 12/20/23 08:30 71 20 113/83 100 12/20/23 08:00 73 20 111/83 100 12/20/23 07:30 72 20 109/82 100 12/20/23 07:27 40 12/20/23 07:00 73 20 104/79 100 12/20/23 06:00 97.3 F L 72 20 133/97 100 12/20/23 05:30 72 33 H 123/90 100 12/20/23 04:53 75 17 115/88 100 12/20/23 04:45 77 28 H 115/88 100 12/20/23 04:15 81 25 H 113/86 100 12/20/23 03:45 83 28 H 113/81 99 12/20/23 03:15 87 29 H 112/80 99 12/20/23 03:00 89 33 H 110/76 99 12/20/23 02:45 91 33 H 110/76 99 12/20/23 02:30 92 30 H 111/78 99 12/20/23 01:45 104 H 24 117/84 99 12/20/23 01:30 106 H 21 121/92 99 12/20/23 01:21 97.6 F 108 H 20 121/92 99 12/20/23 00:47 50 12/20/23 00:07 100 12/19/23 23:55 100 12/19/23 23:30 128 H 12 118/86 97 12/19/23 23:00 131 H 18 160/107 98 12/19/23 22:30 138 H 12 96 12/19/23 20:54 134 H 20 138/107 97 12/19/23 20:47 159 H 26 H 138/107 98 12/19/23 20:36 96.9 F L 146 H 26 H 156/113 98 Intake and Output 12/19/23 12/20/23 12/20/23 22:59 06:59 14:59 Intake Total 83.041 440.001 Output Total 1500 1530 Balance -1416.959 -1089.999 Intake: IV 300 Dextrose 5% in Water 1, 300 000 ml @ 150 mls/hr IV . Q7H40M ELLIE with Sodium Bicarb (1 Meq/ml) 150 ml Rx#:[id number] Intake, IV Titration 83.041 140.001 Amount Dexmedetomidine/0.9% NaCl 11.765 (Pmx) 400 mcg In Empty Bag 1 bag @ 0.2 MCG/KG/HR 3.402 mls/hr IV .Q24H ELLIE Rx#:[id number] propofoL 1,000 mg In 83.041 128.236 Empty Bag 1 bag @ 15 MCG/ KG/MIN 6.124 mls/hr IV . [id number] ELLIE Rx#:[id number] Output: Urine 1500 1530 Uretheral (Zee) 1500 1500 Other: Weight 68.039 kg 68.039 kg General: Revealed 38-year-old white male intubated mechanically ventilated in no distress, sedated Skin: Skin is warm and dry and no rashes or lesions are noted. Eye: Pupils are equal, round and reactive to light, extra-ocular movements are intact; there is normal conjunctiva bilaterally. Ears, nose, mouth and throat: There are moist mucous membranes and no oral lesions. Neck: The neck is supple, there is no tenderness or JVD. Cardiovascular: There is a regular rate and rhythm. No murmur, rub or gallop is appreciated. Respiratory: Clear throughout no crackles rhonchi or wheezes Gastrointestinal: Soft, non-distended, non-tender abdomen without masses or organomegaly noted. There is no rebound or guarding present. Bowel sounds are unremarkable. Musculoskeletal: No deformities noted. Extremities showed no clubbing edema or cyanosis. Neurological: Could not assess patient is sedated, on propofol Psychiatric: Not assessed patient is sedated and on propofol Results - Laboratory Findings CBC and BMP: 12/19/23 21:16 12/19/23 21:16 ABG ABG pH 7.43 (7.35-7.45) 12/20/23 05:43 ABG pCO2 38 mmHg (35-45) 12/20/23 05:43 ABG pO2 180 mmHg (83-108) H 12/20/23 05:43 ABG O2 Saturation 99.7 % (94-97) H 12/20/23 05:43 Abnormal lab findings: Abnormal Labs 12/19/23 12/19/23 12/20/23 21:16 21:16 00:13 ABG pO2 >400 H ABG Total CO2 ABG O2 Saturation 99.7 H Chloride 111 H Carbon Dioxide 18 L U Tricyclic Antidepress Detected H 12/20/23 05:43 ABG pO2 180 H ABG Total CO2 26 H ABG O2 Saturation 99.7 H Chloride Carbon Dioxide U Tricyclic Antidepress - Diagnostic Findings Chest x-ray: image reviewed (Relatively unremarkable chest x-ray.) Assessment and Plan Assessment: Impression: Amitriptyline overdose Acute respiratory failure secondary to above, patient was intubated mostly to protect his airways Altered mental status secondary to above/amitriptyline overdose History of depression and previous multiple suicidal attempts according to . Benign essential hypertension History of seizure disorder Recommendation: Continue ventilatory support Nutritional support if the patient does not get extubated today. GI and DVT prophylaxis Continue bicarb drip, Psychiatric consultation after the patient is extubated We will continue to follow-up Resume home meds postextubation including medications for seizure disorder Continue seizure precautions Suicidal precautions if extubated Patient is critically ill. Discussed his condition with at bedside Time with Patient: Greater than 30
--- NOTE | 2023-12-20 14:02 | P.HPIM ---
History of Present Illness 37-year-old male admitted for overdose on amitriptyline. Unknown the exact amount of amitriptyline the patient was severely altered and unable to protect airway because of which patient was intubated patient is clinically doing well now patient is undergoing weaning trials as per the family members patient was trying to hurt himself. Patient was on propofol which was discontinued and patient is presently on Precedex. REVIEW OF SYSTEMS: Unable to obtain as patient is intubated PHYSICAL EXAMINATION: GENERAL: He is intubated off sedation he is waking up HEENT: No scleral icterus. No conjunctival pallor. Normocephalic, atraumatic. No pharyngeal erythema. No thyromegaly. CARDIOVASCULAR: S1 and S2 present. No murmurs, rubs, or gallops. PULMONARY: Chest is clear to auscultation, no wheezing or crackles. ABDOMEN: Soft, nontender, nondistended, normoactive bowel sounds. No palpable organomegaly. MUSCULOSKELETAL: No joint swelling or deformity. EXTREMITIES: No cyanosis, clubbing, or pedal edema. NEUROLOGICAL: Intubated and off sedation SKIN: No rashes. Assessment and plan -Acute hypoxic respiratory failure secondary to overdose on amitriptyline: Will be continue to monitor for any seizures there is no acute prolongation. Depression and possible suicidal ideation: Will need psychiatry to evaluate the patient -Nicotine use -Seizure disorder: Seizure medications need to be resumed tomorrow after extubat ion DVT prophylaxis: Lovenox Past Medical History Past Medical History: Hypertension, Seizure Disorder History of Any Multi-Drug Resistant Organisms: None Reported Past Surgical History: No Surgical Hx Reported Additional Past Surgical History / Comment(s): hernia mesh Past Psychological History: No Psychological Hx Reported Smoking Status: Current every day smoker Past Alcohol Use History: None Reported Past Drug Use History: None Reported Medications and Allergies Home Medications Medication Instructions Recorded Confirmed Type Acetaminophen/Caffeine [Excedrin 2 tab PO Q6H PRN 12/19/23 12/19/23 History Tension Headache] Amitriptyline HCl [Elavil] 25 mg PO HS 12/19/23 12/19/23 History Butalb/Acetaminophen/Caffeine 1 tab PO Q8H PRN 12/19/23 12/19/23 History [Fioricet 50-325-40] Ergocalciferol [Vitamin D2 (1250 1,250 mcg PO Q7D 12/19/23 12/19/23 History Mcg = 13298 Iu)] Fluticasone Nasal [place] [Flonase 1 spr EA NOSTRIL DAILY 12/19/23 12/19/23 History Nasal [place]] Loratadine [Claritin] 10 mg PO DAILY 12/19/23 12/19/23 History Propranolol HCl [Propranolol HCl 80 mg PO DAILY 12/19/23 12/19/23 History ER] Topiramate [Topamax] 100 mg PO BID 12/19/23 12/19/23 History Valproic Acid [Depakene] 1,000 mg PO Q12H 12/19/23 12/19/23 History levETIRAcetam [Keppra] 500 mg PO BID 12/19/23 12/19/23 History lisinopriL [Zestril] 10 mg PO DAILY 12/19/23 12/19/23 History Allergies Allergy/AdvReac Type Severity Reaction Status Date / Time No Known Allergies Allergy Verified 12/19/23 20:43 Physical Exam Vitals: Vital Signs Temp Pulse Resp BP Pulse Ox FiO2 12/20/23 13:30 83 20 106/80 98 12/20/23 13:00 68 30 H 93/69 97 12/20/23 12:30 74 25 H 95/70 100 12/20/23 12:00 77 20 106/78 100 12/20/23 11:30 77 20 114/85 100 12/20/23 11:00 96.5 F L 81 20 120/88 100 40 12/20/23 10:30 106 H 16 112/86 100 12/20/23 10:00 76 20 123/90 100 12/20/23 09:30 73 20 115/84 100 12/20/23 09:00 71 20 116/88 100 12/20/23 08:30 71 20 113/83 100 12/20/23 08:00 73 20 111/83 100 12/20/23 07:30 72 20 109/82 100 12/20/23 07:27 40 12/20/23 07:00 73 20 104/79 100 12/20/23 06:00 97.3 F L 72 20 133/97 100 12/20/23 05:30 72 33 H 123/90 100 12/20/23 04:53 75 17 115/88 100 12/20/23 04:45 77 28 H 115/88 100 12/20/23 04:15 81 25 H 113/86 100 12/20/23 03:45 83 28 H 113/81 99 12/20/23 03:15 87 29 H 112/80 99 12/20/23 03:00 89 33 H 110/76 99 12/20/23 02:45 91 33 H 110/76 99 12/20/23 02:30 92 30 H 111/78 99 12/20/23 01:45 104 H 24 117/84 99 12/20/23 01:30 106 H 21 121/92 99 12/20/23 01:21 97.6 F 108 H 20 121/92 99 12/20/23 00:47 50 12/20/23 00:07 100 12/19/23 23:55 100 12/19/23 23:30 128 H 12 118/86 97 12/19/23 23:00 131 H 18 160/107 98 12/19/23 22:30 138 H 12 96 12/19/23 20:54 134 H 20 138/107 97 12/19/23 20:47 159 H 26 H 138/107 98 12/19/23 20:36 96.9 F L 146 H 26 H 156/113 98 Intake and Output 12/19/23 12/20/23 12/20/23 22:59 06:59 14:59 Intake Total 83.041 595.955 Output Total 1500 1560 Balance -1416.959 -964.045 Intake: IV 450 Dextrose 5% in Water 1, 450 000 ml @ 150 mls/hr IV . Q7H40M ELLIE with Sodium Bicarb (1 Meq/ml) 150 ml Rx#:[id number] Intake, IV Titration 83.041 145.955 Amount Dexmedetomidine/0.9% NaCl 17.719 (Pmx) 400 mcg In Empty Bag 1 bag @ 0.2 MCG/KG/HR 3.402 mls/hr IV .Q24H ELLIE Rx#:[id number] propofoL 1,000 mg In 83.041 128.236 Empty Bag 1 bag @ 15 MCG/ KG/MIN 6.124 mls/hr IV . [id number] ELLIE Rx#:[id number] Output: Urine 1500 1560 Uretheral (Zee) 1500 1500 Other: Weight 68.039 kg 68.039 kg 68.039 kg Results CBC & Chem 7: 12/19/23 21:16 12/19/23 21:16 Labs: Abnormal Lab Results - Last 24 Hours (Table) 12/19/23 12/19/23 12/20/23 Range/Units 21:16 21:16 00:13 ABG pO2 >400 H (83-108) mmHg ABG Total CO2 (19-24) mmol/L ABG O2 Saturation 99.7 H (94-97) % Chloride 111 H (98-107) mmol/L Carbon Dioxide 18 L (22-30) mmol/L U Tricyclic Antidepress Detected H (NotDetected) 12/20/23 Range/Units 05:43 ABG pO2 180 H (83-108) mmHg ABG Total CO2 26 H (19-24) mmol/L ABG O2 Saturation 99.7 H (94-97) % Chloride (98-107) mmol/L Carbon Dioxide (22-30) mmol/L U Tricyclic Antidepress (NotDetected) Thrombosis Risk Factor Assmnt - Choose All That Apply Any of the Below Risk Factors Present?: No Other Risk Factors: No Other congenital or acquired thrombophilia - If yes, enter type in comment: No Thrombosis Risk Factor Assessment Level: Very Low Risk
[2023-12-20 14:15] VITALS: BMI 22.1
[2023-12-20 15:43] LABS: African American GFR (CKD) >90 (>60 ml/min/1.73 sqM); Anion Gap 2 mmol/L; Blood Urea Nitrogen 5 mg/dL (9-20); Calcium 8.3 mg/dL (8.4-10.2); Carbon Dioxide 26 mmol/L (22-30); Chloride 112 mmol/L (98-107); Glucose 104 mg/dL (74-99); Non-African American GFR(CKD) >90 (>60 ml/min/1.73 sqM); Potassium 3.1 mmol/L (3.5-5.1); Sodium 140 mmol/L (137-145)
[2023-12-20] MEDS ORDERED: Potassium Replacement Protocol 1 EACH MISC MISCELLANE PRN (15:50)
[2023-12-20] MEDS: SODIUM CHLORIDE 0.9% 1,000 ML IV SCH (16:00)
[2023-12-20] MEDS: POTASSIUM CHLORIDE 10 MEQ in WATER FOR INJECTION 1 100ML.BAG IVPB SCH ×2 (16:00→23:13)
[2023-12-21 04:08] LABS: Basophils % (A) 0 %; Eosinophils # (A) 0.1 k/uL (0-0.7); Eosinophils % (A) 2 %; HCT 36.2 % (39.0-53.0); HGB 12.4 gm/dL (13.0-17.5); Lymphocytes # (A) 1.2 k/uL (1.0-4.8); Lymphocytes % (A) 21 %; MCH 31.6 pg (25.0-35.0); MCHC 34.3 g/dL (31.0-37.0); MCV 92.1 fL (80.0-100.0); Mean Platelet Volume 7.7; Monocytes # (A) 0.4 k/uL (0-1.0); Monocytes % (A) 8 %; Neutrophils # (A) 3.8 k/uL (1.3-7.7); Neutrophils % (A) 68 %; Platelet Count 183 k/uL (150-450); RBC 3.93 m/uL (4.30-5.90); RDW 12.8 % (11.5-15.5); WBC 5.5 k/uL (3.8-10.6)
[2023-12-21 04:21] LABS: African American GFR (CKD) >90 (>60 ml/min/1.73 sqM); Anion Gap 3 mmol/L; Blood Urea Nitrogen 4 mg/dL (9-20); Calcium 8.4 mg/dL (8.4-10.2); Carbon Dioxide 23 mmol/L (22-30); Chloride 114 mmol/L (98-107); Glucose 91 mg/dL (74-99); Non-African American GFR(CKD) >90 (>60 ml/min/1.73 sqM); Sodium 140 mmol/L (137-145)
[2023-12-21] MEDS: METOPROLOL TARTRATE 25 MG TAB PO SCH (09:16)
[2023-12-21] MEDS: PROPRANOLOL LA 80 MG CAP.SA.24H PO SCH (12:32)
[2023-12-21] MEDS: VALPROIC ACID ORAL SOLN 250 MG/5 ML CUP PO SCH (12:32)
[2023-12-21] MEDS: levETIRAcetam 500 MG TAB PO SCH (12:32)
--- NOTE | 2023-12-21 13:13 | P.PN ---
Subjective Progress Note Date: 12/21/23 (]) 37-year-old male admitted for overdose on amitriptyline. Unknown the exact amount of amitriptyline the patient was severely altered and unable to protect airway because of which patient was intubated patient is clinically doing well now patient is undergoing weaning trials as per the family members patient was trying to hurt himself. Patient was on propofol which was discontinued and patient is presently on Precedex. 12/21/2023 Patient is evaluated today in the intensive care unit he has been downgraded to the medical floor. He is currently pending evaluation by psychiatry for further recommendations. Patient has been extubated and is now off the Precedex drip. He does report a headache does have history of chronic migraines, and also per at the bedside he has been diagnosed with 2 brain lesions. He dose follow with Dr. Sanders outpatient. Today at the bedside patient is denying suicidal ideations however is stating that he did take the medication to end his life. Patient states that he took the amitrypitiline to "get high". Hemodynamically he is stable. Review of Systems Constitutional: Denied any fatigue denied any fever. Cardio vascular: denied any chest pain, palpitations Gastrointestinal: denied any nausea, vomiting, diarrhea Pulmonary: Denied any shortness of breath cough Neurologic denied any new focal deficits All inpatient medications were reviewed and appropriate changes in these medications as dictated in the interval history and assessment and plan. PHYSICAL EXAMINATION: GENERAL: The patient is alert and oriented x3, not in any acute distress. Well developed, well nourished. HEENT: Pupils are round and equally reacting to light. EOMI. No scleral icterus. No conjunctival pallor. Normocephalic, atraumatic. No pharyngeal erythema. No thyromegaly. CARDIOVASCULAR: S1 and S2 present. No murmurs, rubs, or gallops. PULMONARY: Chest is clear to auscultation, no wheezing or crackles. ABDOMEN: Soft, nontender, nondistended, normoactive bowel sounds. No palpable organomegaly. MUSCULOSKELETAL: No joint swelling or deformity. EXTREMITIES: No cyanosis, clubbing, or pedal edema. NEUROLOGICAL: Gross neurological examination did not reveal any focal deficits. SKIN: No rashes. Assessment and plan -Acute hypoxic respiratory failure secondary to overdose on amitriptyline: status post extubation and now on room air -Sinus tachycardia could be due to overdose patient does take propanolol which has been resumed this could also be rebound tachycardia -Depression and possible suicidal ideation: Will need psychiatry to evaluate the patient -Nicotine use -Seizure disorder: has been resumed on keppra and valproic acid remains in seizure precautions -Chronic migraine resumed on home medications GI prophylaxis DVT prophyalxis Full Code The impression and plan of care has been dictated by Anabel Mcmahan, Nurse Practitioner as directed. Dr. Willis MD I have performed a history and physical examination and medical decision making of this patient, discussed the same with the dictator, and agree with the dictators assessment and plan as written, documented as a scribe. Based on total visit time, I have performed more than 50% of this visit. Objective - Vital Signs Vital signs: Vital Signs Temp 98.5 F 12/21/23 12:00 Pulse 99 12/21/23 12:00 Resp 14 12/21/23 12:00 BP 128/84 12/21/23 12:00 Pulse Ox 95 12/21/23 12:00 FiO2 40 12/20/23 11:00 Intake & Output 12/20/23 12/21/23 12/21/23 18:59 06:59 18:59 Intake Total 8400.664 6370.101 520 Output Total 455 1490 400 Balance 1094.225 -7.899 120 Weight 68.039 kg 79.5 kg Intake: IV 1050 1200 220 Dextrose 5% in Water 1, 750 000 ml @ 150 mls/hr IV . Q7H40M ELLIE with Sodium Bicarb (1 Meq/ml) 150 ml Rx#:[id number] Sodium Chloride 0.9% 1, 300 1200 220 000 ml @ 20 mls/hr IV . Q24H ELLIE Rx#:[id number] Intake, IV Titration 499.225 182.101 Amount Dexmedetomidine/0.9% NaCl 70.989 82.101 (Pmx) 400 mcg In Empty Bag 1 bag @ 0.2 MCG/KG/HR 3.402 mls/hr IV .Q24H ELLIE Rx#:[id number] Potassium Chloride 10 meq 300 100 In Water For Injection 1 100ml.bag @ 100 mls/hr IVPB Q1HR ELLIE Rx#: [id number] propofoL 1,000 mg In 128.236 Empty Bag 1 bag @ 15 MCG/ KG/MIN 6.124 mls/hr IV . [id number] [facility] Rx#:[id number] Oral 100 300 Output: Urine 455 1490 400 - Labs CBC & Chem 7: 12/21/23 03:16 12/21/23 03:16 Labs: Abnormal Lab Results - Last 24 Hours (Table) 12/20/23 12/21/23 12/21/23 Range/Units 14:27 03:16 03:16 RBC 3.93 L (4.30-5.90) m/uL Hgb 12.4 L (13.0-17.5) gm/dL Hct 36.2 L (39.0-53.0) % Potassium 3.1 L (3.5-5.1) mmol/L Chloride 112 H 114 H (98-107) mmol/L BUN 5 L 4 L (9-20) mg/dL Creatinine 0.64 L (0.66-1.25) mg/dL Glucose 104 H (74-99) mg/dL Calcium 8.3 L (8.4-10.2) mg/dL Assessment and Plan Time with Patient: Less than 30
--- NOTE | 2023-12-21 13:41 | P.PN ---
Subjective Progress Note Date: 12/21/23 Principal diagnosis: Amitriptyline overdose This is a 37-year-old white male with history of depression, history of seizures, brought into the ER yesterday with what seems to be amitriptyline overdose. Patient took relatively a dose of 750 mg Toprol according to the ER physician. This was based on the fact that his found the bottle empty, and the patient had previous history of doing the same. In the ER, patient was down there for few hours, and I was notified about this patient late in the evening with his mental status getting worse, and the patient becoming less and less responsive to painful stimuli. Hence I recommended intubating the patient to protect his airways, and to transfer the patient to the ICU. I did see the patient today in the ER and shortly afterward he was transferred to the ICU. Patient is now on assist-control rate of 20 tidal volume 450 FiO2 40%, and PEEP of 5. ABG showed a pO2 of 180 pCO2 38 pH of 7.40. Chest x-ray showed no victor manuel dence of infiltrate. Patient is on propofol at 50 mcg/kg/min, he is also receiving sodium bicarb, 3 A in D5W running at 150 cc/h. This morning are pending. ABG this morning was noted. EKG from earlier this morning was also noted slight conduction delay in the QRS Patient was reevaluated today on 12/21/2023, patient was extubated yesterday, tolerated extubation well, patient is doing great, relatively asymptomatic, patient is a bit tachycardic, however noted that the patient is normally on be ta-blockers at home. And will start the patient back on his beta-blockers. Psychiatry is yet to see the patient, and as far as I am concerned, the patient could be transferred to the regular medical floor with suicidal precautions, and needs a sitter at bedside. Unless psychiatry is planning to take him to the psychiatric [facility] for admission. It is up to psychiatry to decide whether the patient could be discharged home, however knowing the patient does have significant depression, although he denies that he took the medication for suicidal purpose, he felt he took all these medications because of the pain at any rate patient will be transferred out of the ICU today, and we will see the patient on as-needed basis. Labs today showed normal CBC normal electrolytes normal renal profile Objective - Vital Signs Vital signs: Vital Signs Temp 98.5 F 12/21/23 12:00 Pulse 99 12/21/23 12:00 Resp 14 12/21/23 12:00 BP 128/84 12/21/23 12:00 Pulse Ox 95 12/21/23 12:00 FiO2 40 12/20/23 11:00 Intake & Output 12/20/23 12/21/23 12/21/23 18:59 06:59 18:59 Intake Total 4727.145 5027.101 520 Output Total 455 1490 400 Balance 1094.225 -7.899 120 Weight 68.039 kg 79.5 kg Intake: IV 1050 1200 220 Dextrose 5% in Water 1, 750 000 ml @ 150 mls/hr IV . Q7H40M ELLIE with Sodium Bicarb (1 Meq/ml) 150 ml Rx#:[id number] Sodium Chloride 0.9% 1, 300 1200 220 000 ml @ 20 mls/hr IV . Q24H ELLIE Rx#:[id number] Intake, IV Titration 499.225 182.101 Amount Dexmedetomidine/0.9% NaCl 70.989 82.101 (Pmx) 400 mcg In Empty Bag 1 bag @ 0.2 MCG/KG/HR 3.402 mls/hr IV .Q24H ELLIE Rx#:[id number] Potassium Chloride 10 meq 300 100 In Water For Injection 1 100ml.bag @ 100 mls/hr IVPB Q1HR ELLIE Rx#: [id number] propofoL 1,000 mg In 128.236 Empty Bag 1 bag @ 15 MCG/ KG/MIN 6.124 mls/hr IV . [id number] ELLIE Rx#:[id number] Oral 100 300 Output: Urine 455 1490 400 - Exam General: The patient is awake and alert, in no distress, and does not appear acutely ill. Skin: Skin is warm and dry and no rashes or lesions are noted. Eye: Pupils are equal, round and reactive to light, extra-ocular movements are intact; there is normal conjunctiva bilaterally. Ears, nose, mouth and throat: There are moist mucous membranes and no oral lesions. Neck: The neck is supple, there is no tenderness or JVD. Cardiovascular: There is a regular rate and rhythm. No murmur, rub or gallop is appreciated. Respiratory: Clear bilaterally no rhonchi no wheezes Gastrointestinal: Soft, non-distended, non-tender abdomen without masses or organomegaly noted. There is no rebound or guarding present. Bowel sounds are unremarkable. Back: There is no tenderness to palpation in the midline. There is no obvious deformity. Musculoskeletal: Normal ROM, no tenderness, There is no pedal edema. There is no calf tenderness or swelling. No cords were appreciated. Neurological: CN II-XII intact, Cranial nerves III through XII are intact. There are no obvious motor or sensory deficits. Coordination appears grossly intact. Speech is normal. Psychiatric: Cooperative, appropriate mood & affect, normal judgment. - Labs CBC & Chem 7: 12/21/23 03:16 12/21/23 03:16 Labs: Abnormal Lab Results - Last 24 Hours (Table) 12/20/23 12/21/23 12/21/23 Range/Units 14:27 03:16 03:16 RBC 3.93 L (4.30-5.90) m/uL Hgb 12.4 L (13.0-17.5) gm/dL Hct 36.2 L (39.0-53.0) % Potassium 3.1 L (3.5-5.1) mmol/L Chloride 112 H 114 H (98-107) mmol/L BUN 5 L 4 L (9-20) mg/dL Creatinine 0.64 L (0.66-1.25) mg/dL Glucose 104 H (74-99) mg/dL Calcium 8.3 L (8.4-10.2) mg/dL Assessment and Plan Assessment: Impression: Amitriptyline overdose Acute respiratory failure secondary to above, patient was intubated mostly to protect his airways, patient was extubated on 12/20/2023, tolerated extubation well Altered mental status secondary to above/amitriptyline overdose History of depression and previous multiple suicidal attempts according to . Benign essential hypertension History of seizure disorder Recommendation: Transfer patient out of the ICU to a regular medical floor but he needs to be on suicidal precautions and he needs a sitter at bedside Psychiatry to evaluate the patient and decide whether the patient needs to be admitted to the psychiatric floor Started patient on beta-blockers for his sinus tachycardia. Will follow the patient as needed. Time with Patient: Less than 30
[2023-12-21] MEDS: TOPIRAMATE 100 MG TAB PO SCH (21:36)
[2023-12-22 09:43] VITALS: BP 128/86; PULSE 95; RESP 20; TEMP 98.1
--- NOTE | 2023-12-22 11:47 | P.CN ---
Psychiatric Consult - . Consult date: 12/21/23 Consult:: Reason for Consult/Chief Complaint: Possible suicidal attempt due to overdose on amitriptyline History of Present Illness: The patient is a 37-year-old male who currently lives in a senior living, and no previous psychiatric diagnosis besides substance use disorders and history of medical problems including possible multiple sclerosis, and seizure disorder. The patient was brought to the hospital after an overdose in the which she reported unknown amount and that caused him altered mental status and difficulty breathing so the patient was intubated. The patient was evaluated today while was in his room at the medical floor and his "Vanesa Ballard" was at the bedside. Information was obtained from the patient, his , and the medical chart review. The patient was lying in bed and one-to-one staff was at the room lifting during evaluation. The patient was guarded and superficial in his answers with minimal engagement and not fully cooperative. He presents with signs of severe distress or agitation. The patient reported that he ingested "too much Elavil" to get "buzzed". The patient indicated that someone told him Benadryl could give him that bothers and he ingested about 10 tablets of his medication with no intention to end his life. The patient thought that could be similar to alcohol or need and he didn't know the medication could cause serious medical problem. The patient denies history of psychiatric diagnosis, but admitted for history of addiction problem and he is maintaining sobriety since 2008 with lack of choice was marijuana and he did use heroin twice lifelong, and a reported history of snorting but occasionally injected himself with heroin. The patient reported symptoms of depression and sadness with lack of motivation and infrequently having thoughts of hopelessness and suicidal ideation, but no symptoms are not persistent and a very infrequent. He reported history of overdose on other seizure medication about 2 weeks ago for the same reason to get high. He indicated that he doesn't want to get high and drugs because that would show up in his drug screen, so he decided to get high on his own medications. He reports he tried other seizure medication 2 weeks ago, but he c ouldn't recall its name. 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 Patient denies symptoms of hallucinations, paranoid ideation, or delusions. The patient denies episodes of manic symptoms including elevated mood, grandiosity, absence to sleep due to unusual increase in energy or impulsive/uninhibited b ehavior. The patient denies history of self-injurious behavior as cutting. The patient reported history of traumatic brain injury and was diagnosed was 2 lesions in his brain that could be multiple sclerosis. He was told that he may have muscular dystrophy. Additionally, the patient diagnosed with seizure disorder. According to his who requested to talk to me individually, the patient has history of addiction and has been very depressed for the past few months because he couldn't get a job and he disclosed to her that he doesn't want to live and having suicidal thoughts. The reported that the patient overdosed on 30 pills of 25 mg amitriptyline which is prescribed for headache and nerve pain. The patient was never diagnosed with depression or any other psychiatric disorde r and never started on any psychiatric medications. The patient started to see a neurologist few weeks ago and probably he had multiple sclerosis. The indicated that the patient had multiple trials of overdose on his medications including Depakote "about 240 pills missing", and other time on blood pressure medication. The has petitioned the patient to get help with his psychiatric symptoms and depression. Past psychiatric history: Psychiatric diagnosis: No previous diagnosis, but the patient has been presented with depression and suicidal ideation for the past a few months as per his Previous psychiatric hospitalizations: None reported Previous suicidal attempts: The patient was very guarded and superficial, and the history is not fully reliable. He denied previous suicidal attempts. The reported patient had tried multiple times to overdose on his medications including Depakote, blood pressure medication, and most recently amitriptyline Previous/ current outpatient psychiatric treatment: None reported Substance use history: The patient reported smoking 1 pack of cigarettes daily. He denies drinking alcohol. He reported history of substance use disorder with his main drug was marijuana. He is sober since 2008. The patient reported history of using heroin by intranasal and injecting in the past. Social/ Developmental History: The patient currently lives at the senior living. 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 He reported has an associate degree. The patient was raised up by his parents. Family Psychiatric History: No reported family history of mental illness, obsessive disorder, or suicide. Mental Status Examination: Appearance: Appears stated age, disheveled, below average body built, and no specific features. Gait/ posture: Unable to assess her gait today Attitude and Behavior: The patch, guarded, not cooperative, poor eye contact during course of interview. Motor Activity: Decreased psychomotor activity. Speech: Normal rate, rhythm, articulation, and prosody. None pressured. Mood: " Irritable Affect: Constricted Thought form: Goal directed, linear, and relevant, not incoherent and no clang association. Thought content: Logical, non-delusional, denies suicidal, homicidal thoughts, intentions, or plans. Perception: Denies any auditory/ visual or tactile hallucinations. Attention: No impairment. Orientation: Oriented to time, place, person, and situation. Insight & Judgment: poor Impulse control: poor Assessment: Depressive disorder, unspecified. Rule out major depressive disorder. Cannabis use disorder. Rule out opioid use disorder. Recommendation: Disposition/Follow-up: Recommended inpatient psychiatric hospitalization Addressed and ensured patient's safety, patient does meet the criteria for psychiatric hospitalization. Patient is most probably as per evaluation and collateral from his is actively suicidal, and he had multiple attempts to overdose on his home medication to end his life including most recently overdosed on 30 tablets of amitriptyline. The patient continued to minimize his overdose, but the reported that he has been depressed and verbalized no signs of thoughts to her. Please transfer the patient to inpatient psychiatric level of care after achieving medical stabilization. Continue the patient on 1:1 observation for safety. If the patient refuses transfer to the inpatient psychiatric service, the patient cannot leave against medical advice (AMA) before further evaluation by the psychiatric team. In this case, please consider petitioning the patient and attending physician to place a clinical certificate if needed. The patient has been petitioned by his . Medication management: None at this time, at the patient has very poor insight and refusing treatment. Brief supportive psychotherapy and psychoeducation was provided to the patient. Discussed the treatment plan with the requesting physician/service. Thank you for permitting me to assist in this patient's treatment. Please call the psychiatry department if you have any questions or need further help with this case.
[2023-12-22] MEDS: NICOTINE 21MG/24HR PATCH TRANSDERM SCH (13:01)
--- NOTE | 2023-12-22 13:59 | P.DS ---
Providers Date of admission: 12/20/23 00:13 Attending physician: Low Vera Consults: 12/19/23 23:31 Consult Physician Urgent Consulting Provider: Soy Elliott Consult Reason/Comments: seizure, suspect amitriptyline overdose Do you want consulting provider notified?: Already Contacted 12/21/23 06:00 Consult Physician Routine Consulting Provider: Adrien Larry Consult Reason/Comments: overdose, suicide attempt Do you want consulting provider notified?: Yes Primary care physician: John Rivas Hospital Course: Final Diagnosis -Acute hypoxic respiratory failure secondary to overdose on amitriptyline: status post extubation and now on room air -Sinus tachycardia could be due to overdose patient does take propanolol which has been resumed this could also be rebound tachycardia resolved. -Depression and possible suicidal ideation: Will need psychiatry to evaluate the patient -Nicotine use -Seizure disorder: has been resumed on keppra and valproic acid remains in seizure precautions -Chronic migraine resumed on home medications GI prophylaxis DVT prophyalxis Full Code Discharge Disposition Patient is stable for transfer to inpatient mental health unit. Continue all reconciled medications with exception of amitriptyline and any further recommendations at the discretion of the psychiatrist. Recommend for patient to repeat his labs outpatient in 2 to 3 days on discharge from the mental health unit and also to follow-up with his PCP Dr. Rivas. Hospital Course 37-year-old male admitted for overdose on amitriptyline. He has medical history of seizure disorder chronic migraines and per the at the bedside diagnosed with 2 lesions in his brain and follows up with Dr. Sanders for workup for MS. There was reports by he ingested 10 tablets of amitriptyline, although unknown the exact amount of amitriptyline the patient was severely altered and unable to protect airway on presentation. There was also reports of possible seizure like activity. patient was intubated and monitored in the ICU on propofol. He was extubated and monitored on precedex and has since been weaned off and downgraded to the medical floor. He has reports of migraine for which he has chronic migraine, otherwise he is alert and oriented x 3 with no focal deficits. He has no chest pain, no shortness of breath. Patient states that he took the amitrypitiline to "get high". Hemodynamically he is stable. He is currently denying suicidal ideations, states he has a follow up on the at neurology for an LP for work up for the MS. He was also in the process of obtaining employment. He was evaluated by psychiatry for the suicide attempt by overdose and was recommended for IP psychiatric evaluation and treatment. Patient is cleared medically for discharge to inpatient mental health. Please see medication reconciliation for a list of current medications Thank you for allowing us to participate in the care of this patient. The impression and plan of care has been dictated by Anabel Mcmahan, Nurse Practitioner as directed. Dr. Willis MD I have performed a history and physical examination and medical decision making of this patient, discussed the same with the dictator, and agree with the dictators assessment and plan as written, documented as a scribe. Based on total visit time, I have performed more than 50% of this visit. Patient Condition at Discharge: Fair Plan - Discharge Summary New Discharge Prescriptions: New Nicotine 21Mg/24Hr Patch [Habitrol] 1 patch TRANSDERM DAILY patch Pantoprazole [Protonix] 40 mg PO AC-BRKFST tab Continue Propranolol HCl [Propranolol HCl ER] 80 mg PO DAILY Butalb/Acetaminophen/Caffeine [Fioricet 50-325-40] 1 tab PO Q8H PRN PRN Reason: Migraine Headache levETIRAcetam [Keppra] 500 mg PO BID Valproic Acid [Depakene] 1,000 mg PO Q12H Topiramate [Topamax] 100 mg PO BID Fluticasone Nasal [place] [Flonase Nasal [place]] 1 spr EA NOSTRIL DAILY Loratadine [Claritin] 10 mg PO DAILY Ergocalciferol [Vitamin D2 (1250 Mcg = 48983 Iu)] 1,250 mcg PO Q7D Acetaminophen/Caffeine [Excedrin Tension Headache] 2 tab PO Q6H PRN PRN Reason: Migraine Headache Discontinued lisinopriL [Zestril] 10 mg PO DAILY Amitriptyline HCl [Elavil] 25 mg PO HS Discharge Medication List Acetaminophen/Caffeine [Excedrin Tension Headache] 2 tab PO Q6H PRN 12/19/23 [History] Butalb/Acetaminophen/Caffeine [Fioricet 50-325-40] 1 tab PO Q8H PRN 12/19/23 [History] Ergocalciferol [Vitamin D2 (1250 Mcg = 37837 Iu)] 1,250 mcg PO Q7D 12/19/23 [History] Fluticasone Nasal [place] [Flonase Nasal [place]] 1 spr EA NOSTRIL DAILY 12/19/23 [History] Loratadine [Claritin] 10 mg PO DAILY 12/19/23 [History] Propranolol HCl [Propranolol HCl ER] 80 mg PO DAILY 12/19/23 [History] Topiramate [Topamax] 100 mg PO BID 12/19/23 [History] Valproic Acid [Depakene] 1,000 mg PO Q12H 12/19/23 [History] levETIRAcetam [Keppra] 500 mg PO BID 12/19/23 [History] Nicotine 21Mg/24Hr Patch [Habitrol] 1 patch TRANSDERM DAILY patch 12/22/23 [Rx] Pantoprazole [Protonix] 40 mg PO AC-BRKFST tab 12/22/23 [Rx] Follow up Appointment(s)/Referral(s): None,Stated [REFERRING] - 1-2 days Patient Instructions/Handouts: Seizure/Epilepsy Discharge Instructions & Fo llow-Up Discharge Disposition: TRANSFER TO PSYCH HOSP/UNIT
[2023-12-23] MEDS ORDERED: PANTOPRAZOLE 40 MG TABLET PO SCH (07:30)
== END 2023-12-22 16:54 | DRG 817 ==
LOC: EC 20:32 → 2SICU 12-20 00:13
PROVIDERS: ADMIT Hospitalist; ATTEND Hospitalist
PROC: 5A1935Z Respiratory Ventilation, Less than 24 Consecutive Hours (ICD-10-PCS; principal; 2023-12-19)
PROC: 0BH17EZ Insertion of Endotracheal Airway into Trachea, Via Natural or Artificial Opening (ICD-10-PCS; principal; 2023-12-19)
DX: T43.012A Poisoning by tricyclic antidepressants, intentional self-harm, initial encounter (principal); J96.01 Acute respiratory failure with hypoxia; Z79.899 Other long term (current) drug therapy; F17.200 Nicotine dependence, unspecified, uncomplicated; F32.A Depression, unspecified; G43.909 Migraine, unspecified, not intractable, without status migrainosus; G40.909 Epilepsy, unspecified, not intractable, without status epilepticus; G44.209 Tension-type headache, unspecified, not intractable; I10 Essential (primary) hypertension; R00.0 Tachycardia, unspecified; F12.10 Cannabis abuse, uncomplicated; T50.901A Poisoning by unspecified drugs, medicaments and biological substances, accidental (unintentional), initial encounter; Z91.51 Personal history of suicidal behavior; Z28.310 Unvaccinated for COVID-19; Z28.21 Immunization not carried out because of patient refusal; Z11.52 Encounter for screening for COVID-19; Z71.3 Dietary counseling and surveillance
CPT/HCPCS: 31500; 36415; 36600; 51702; 70450; 71045; 74018; 80048; 80053; 80143; 80164; 80179; 80306; 80320; 81003; 82140; 82550; 82805; 83605; 83690; 83735; 84132; 84484; 85025; 87635; 93005; 94002; 96361; 96372; 96374; 96375; 96376; 99291

== ENCOUNTER 2023-12-22 15:34 | Inpatient (IN) | payer MEDICAID ==
[2023-12-22] MEDS ORDERED: BUTALB/APAP/CAFF 50-325-40MG TAB PO PRN (15:41)
[2023-12-22] MEDS ORDERED: LORazepam 1 MG TAB PO PRN (15:43)
[2023-12-22] MEDS ORDERED: ACETAMINOPHEN TAB 325 MG TAB PO PRN (15:43)
[2023-12-22] MEDS ORDERED: MAG HYDROX/AL HYDROX/SIMETH 30 ML CUP PO PRN (15:43)
[2023-12-22] MEDS ORDERED: MAGNESIUM HYDROXIDE 2,400 MG/30 ML CUP PO PRN (15:43)
[2023-12-22] MEDS ORDERED: LORazepam 2 MG/ML INJ IM PRN (15:43)
[2023-12-22] MEDS ORDERED: IBUPROFEN 600 MG TAB PO PRN (15:43)
[2023-12-22] MEDS ORDERED: QUEtiapine 25 MG TAB PO PRN (15:52)
[2023-12-22 17:12] VITALS: RESP 16
[2023-12-22] MEDS: TOPIRAMATE 100 MG TAB PO SCH (20:42)
[2023-12-22] MEDS: VALPROIC ACID ORAL SOLN 250 MG/5 ML CUP PO SCH (20:42)
[2023-12-22] MEDS: levETIRAcetam 500 MG TAB PO SCH (20:42)
[2023-12-23] MEDS: NICOTINE 21MG/24HR PATCH TRANSDERM SCH (08:08)
[2023-12-23] MEDS: PROPRANOLOL LA 80 MG CAP.SA.24H PO SCH (10:34)
--- NOTE | 2023-12-23 12:26 | P.CONS ---
History of Present Illness - Reason for Consult Consult date: 12/23/23 Medical consultation Requesting physician: Samir Wilson - History of Present Illness 37-year-old male who was originally admitted for amitriptyline overdose he was monitored in ICU. He has medical history of seizure disorder chronic migraines and per the at the bedside diagnosed with 2 lesions in his brain and follows up with Dr. Sanders for workup for MS. There was reports by he consuelo sted 10 tablets of amitriptyline, although unknown the exact amount of amitriptyline the patient was severely altered and unable to protect airway on presentation. There was also reports of possible seizure like activity. patient was intubated and monitored in the ICU on propofol. He was extubated and monitored on precedex and has since been weaned off and downgraded to the medical floor. He has reports of migraine for which he has chronic migraine, otherwise he is alert and oriented x 3 with no focal deficits. He has no chest pain he does report feeling short of breath today, lungs are clear he does report a questionable asthma or COPD history states he has used inhalers in the past from a prior PCP. We will reorder one for this patient. Hemodynamically he is stable. He is currently denying suicidal ideations, states he has a follow up on the at neurology for an LP for work up for the MS. He was also in the process of obtaining employment. He was evaluated by psychiatry for the suicide attempt by overdose and was recommended for IP psychiatric evaluation and treatment. He is evaluated today on the mental health unit. REVIEW OF SYSTEMS: CONSTITUTIONAL: No fever, no malaise, no fatigue. HEENT: No recent visual problems or hearing problems. Denied any sore throat. CARDIOVASCULAR: No chest pain, orthopnea, PND, no palpitations, no syncope. PULMONARY: Reports shortness of breath, no cough, no hemoptysis. GASTROINTESTINAL: No diarrhea, no nausea, no vomiting, no abdominal pain. NEUROLOGICAL: No headaches, no weakness, no numbness. HEMATOLOGICAL: Denies any bleeding or petechiae. GENITOURINARY: Denies any burning micturition, frequency, or urgency. MUSCULOSKELETAL/RHEUMATOLOGICAL: Denies any joint pain, swelling, or any muscle pain. ENDOCRINE: Denies any polyuria or polydipsia. The rest of the 14-point review of systems is negative. PHYSICAL EXAMINATION: GENERAL: The patient is alert and oriented x3, not in any acute distress. Well developed, well nourished. HEENT: Pupils are round and equally reacting to light. EOMI. No scleral icterus. No conjunctival pallor. Normocephalic, atraumatic. No pharyngeal erythema. No thyromegaly. CARDIOVASCULAR: S1 and S2 present. No murmurs, rubs, or gallops. PULMONARY: Chest is clear to auscultation, no wheezing or crackles. ABDOMEN: Soft, nontender, nondistended, normoactive bowel sounds. No palpable organomegaly. MUSCULOSKELETAL: No joint swelling or deformity. EXTREMITIES: No cyanosis, clubbing, or pedal edema. NEUROLOGICAL: Gross neurological examination did not reveal any focal deficits. SKIN: No rashes. Assessment and Plan -Overdose on amitriptyline -Depression and suicidal ideation patient is currently undergoing inpatient psychiatric evaluation and treatment denies suicidal ideation today. -Nicotine use continue with nicotine patch -Sinus tachycardia could be due to anxiety, also with recent OD. TSH low ant T4 will be checked -Seizure disorder: has been resumed on keppra and valproic acid remains in seizure precautions -Chronic migraine resumed on home medications including topiramate. Fioricet PRN for migraine. GI prophylaxis DVT prophyalxis Full Code Please see medication reconciliation for a list of current medications Thank you for allowing us to participate in the care of this patient. The impression and plan of care has been dictated by Anabel Mcmahan Nurse Practitioner as directed. Dr. Willis MD I have performed a history and physical examination and medical decision making of this patient, discussed the same with the dictator, and agree with the d [facility] and plan as written, documented as a scribe. Based on total visit time, I have performed more than 50% of this visit. Past Medical History Past Medical History: Hypertension, Seizure Disorder History of Any Multi-Drug Resistant Organisms: None Reported Past Surgical History: No Surgical Hx Reported Additional Past Surgical History / Comment(s): hernia mesh Smoking Status: Current every day smoker Medications and Allergies Home Medications Medication Instructions Recorded Confirmed Type Acetaminophen/Caffeine [Excedrin 2 tab PO Q6H PRN 12/19/23 12/22/23 History Tension Headache] Butalb/Acetaminophen/Caffeine 1 tab PO Q8H PRN 12/19/23 12/22/23 History [Fioricet 50-325-40] Ergocalciferol [Vitamin D2 (1250 1,250 mcg PO Q7D 12/19/23 12/22/23 History Mcg = 72578 Iu)] Fluticasone Nasal [place] [Flonase 1 spr EA NOSTRIL DAILY 12/19/23 12/22/23 History Nasal [place]] Loratadine [Claritin] 10 mg PO DAILY 12/19/23 12/22/23 History Propranolol HCl [Propranolol HCl 80 mg PO DAILY 12/19/23 12/22/23 History ER] Topiramate [Topamax] 100 mg PO BID 12/19/23 12/22/23 History Valproic Acid [Depakene] 1,000 mg PO Q12H 12/19/23 12/22/23 History levETIRAcetam [Keppra] 500 mg PO BID 12/19/23 12/22/23 History Nicotine 21Mg/24Hr Patch [Habitrol] 1 patch TRANSDERM DAILY patch 12/22/23 12/22/23 Rx Pantoprazole [Protonix] 40 mg PO AC-BRKFST tab 12/22/23 12/22/23 Rx Allergies Allergy/AdvReac Type Severity Reaction Status Date / Time No Known Allergies Allergy Verified 12/22/23 18:01 Physical Exam Vitals: Vital Signs Temp Pulse Resp BP Pulse Ox 12/23/23 08:11 120 H 141/59 12/22/23 16:44 98.6 F 98 16 142/87 99 12/22/23 16:15 98.6 F 98 16 142/87 98 Intake and Output 12/22/23 12/23/23 12/23/23 22:59 06:59 14:59 Other: Weight 69.9 kg Results Labs: Abnormal Lab Results - Last 24 Hours (Table) 12/23/23 Range/Units 10:07 TSH 0.458 L (0.465-4.680) mIU/L
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
[2023-12-23] MEDS: SERTRALINE 25 MG TAB PO ONE (12:50)
[2023-12-23 16:55] LABS: Chol/HDL Ratio 4.44 Ratio; LDL Cholesterol,Calculated 93.3 mg/dL (0.0-131.0)
[2023-12-23] MEDS: MIRTAZAPINE 15 MG TAB PO SCH (20:19)
[2023-12-23] MEDS: FLUTICASONE 50MCG/SPRAY NASAL 16GM EA NOSTRIL SCH (23:51)
[2023-12-24 07:19] VITALS: TEMP 97.8
[2023-12-24] MEDS: SERTRALINE 50 MG TAB PO SCH (08:50)
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
[2023-12-25 07:22] VITALS: PULSE 76
[2023-12-25 08:26] VITALS: BP 112/73
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
== END 2023-12-25 14:35 | disposition home or self-care (01) | DRG 753 ==
LOC: 3MHU 16:44
PROVIDERS: ADMIT Psychiatry & Neurology Psychiatry; ATTEND Psychiatry & Neurology Psychiatry
DX: F39 Unspecified mood [affective] disorder (principal); G40.909 Epilepsy, unspecified, not intractable, without status epilepticus; F12.11 Cannabis abuse, in remission; I10 Essential (primary) hypertension; G35 Multiple sclerosis; F14.11 Cocaine abuse, in remission; F15.11 Other stimulant abuse, in remission; T43.012D Poisoning by tricyclic antidepressants, intentional self-harm, subsequent encounter; G43.909 Migraine, unspecified, not intractable, without status migrainosus; Z28.310 Unvaccinated for COVID-19; F17.210 Nicotine dependence, cigarettes, uncomplicated; Z71.6 Tobacco abuse counseling; Z79.899 Other long term (current) drug therapy; Z59.01 Sheltered homelessness; Z56.0 Unemployment, unspecified; Z87.820 Personal history of traumatic brain injury; Z65.3 Problems related to other legal circumstances
CPT/HCPCS: 80061; 83036; 84439; 84443

== ENCOUNTER 2024-05-07 14:44 | Emergency (ER) | payer OTHER ==
[2024-05-07 14:50] VITALS: RESP 18
[2024-05-07] MEDS: SODIUM CHLORIDE 0.9% 1,000 ML IV STA (15:39)
[2024-05-07] MEDS: ONDANSETRON 4 MG/2 ML VIAL IVP STA (15:39)
[2024-05-07 15:59] LABS: Basophils % (A) 0 %; Eosinophils % (A) 1 %; HCT 47.4 % (39.0-53.0); HGB 15.5 gm/dL (13.0-17.5); Lymphocytes # (A) 1.9 k/uL (1.0-4.8); Lymphocytes % (A) 28 %; MCH 30.1 pg (25.0-35.0); MCHC 32.7 g/dL (31.0-37.0); MCV 91.9 fL (80.0-100.0); Mean Platelet Volume 8.1; Monocytes # (A) 0.4 k/uL (0-1.0); Monocytes % (A) 5 %; Neutrophils # (A) 4.2 k/uL (1.3-7.7); Neutrophils % (A) 64 %; Platelet Count 227 k/uL (150-450); RBC 5.15 m/uL (4.30-5.90); RDW 11.7 % (11.5-15.5); WBC 6.6 k/uL (3.8-10.6)
[2024-05-07] MEDS: IBUPROFEN 600 MG TAB PO STA (16:15)
[2024-05-07 16:24] LABS: ALT 12 U/L (4-49); AST 19 U/L (17-59); African American GFR (CKD) 72 (>60 ml/min/1.73 sqM); Albumin 4.6 g/dL (3.5-5.0); Alkaline Phosphatase 59 U/L (38-126); Amylase 54 U/L (30-110); Anion Gap 13 mmol/L; Blood Urea Nitrogen 19 mg/dL (9-20); Calcium 9.5 mg/dL (8.4-10.2); Carbon Dioxide 18 mmol/L (22-30); Chloride 105 mmol/L (98-107); Glucose 104 mg/dL (74-99); Lipase 43 U/L (23-300); Non-African American GFR(CKD) 62 (>60 ml/min/1.73 sqM); Sodium 136 mmol/L (137-145); Total Bilirubin 0.4 mg/dL (0.2-1.3); Total Protein 7.1 g/dL (6.3-8.2)
[2024-05-07 16:29] LABS: Valproic Acid (Depakene) 29.2 ug/mL
--- NOTE | 2024-05-07 16:34 | ED ---
General Adult HPI - General Chief complaint: Nausea/Vomiting/Diarrhea Stated complaint: Weakness,Seizures,Headache Time Seen by Provider: 05/07/24 15:00 Source: patient Mode of arrival: wheelchair Limitations: no limitations - History of Present Illness Initial comments: This patient is a 39-year-old man who presents with a constellation of symptoms that been getting worse over the past couple of days. The patient complains of feeling very weak. He states that his generalized weakness not a focal weakness. He also has had nausea and his oral intake has been down. Patient has had a tonic-clonic seizure at home. He usually takes Depakote but may have not been able to take a dose because he was very nauseated. Onset/Timin -: days(s) Radiation: non-radiation Severity scale (1-10): 0 Consistency: constant Improves with: none Worsens with: none Associated Symptoms: nausea/vomiting, weakness Treatments Prior to Arrival: none - Related Data Home Medications Medication Instructions Recorded Confirmed Butalb/Acetaminophen/Caffeine 1 tab PO Q8H PRN 12/19/23 12/22/23 [Fioricet 50-325-40] Ergocalciferol [Vitamin D2 (1250 1,250 mcg PO Q7D 12/19/23 12/22/23 Mcg = 63274 Iu)] Fluticasone Nasal [place] [Flonase 1 spr EA NOSTRIL DAILY 12/19/23 12/22/23 Nasal [place]] Loratadine [Claritin] 10 mg PO DAILY 12/19/23 12/22/23 Propranolol HCl [Propranolol HCl 80 mg PO DAILY 12/19/23 12/22/23 ER] Topiramate [Topamax] 100 mg PO BID 12/19/23 12/22/23 Valproic Acid [Depakene] 1,000 mg PO Q12H 12/19/23 12/22/23 levETIRAcetam [Keppra] 500 mg PO BID 12/19/23 12/22/23 Previous Rx's Medication Instructions Recorded Pantoprazole [Protonix] 40 mg PO AC-BRKFST tab 12/22/23 Mirtazapine [Remeron] 15 mg PO HS 30 Days #30 tab 12/25/23 Sertraline [Zoloft] 50 mg PO DAILY 30 Days #30 tab 12/25/23 Allergies Allergy/AdvReac Type Severity Reaction Status Date / Time No Known Allergies Allergy Verified 05/07/24 14:51 Review of Systems ROS Statement: Those systems with pertinent positive or pertinent negative responses have been documented in the HPI. ROS Other: All systems not noted in ROS Statement are negative. Constitutional: Reports: weakness. Denies: fever, chills Eyes: Denies: eye pain, vision change ENT: Denies: ear pain Respiratory: Denies: cough, dyspnea Cardiovascular: Denies: chest pain, palpitations, edema, syncope Gastrointestinal: Reports: nausea. Denies: abdominal pain, vomiting, diarrhea, melena, hematochezia Genitourinary: Denies: dysuria, hematuria Musculoskeletal: Denies: back pain Skin: Denies: rash Neurological: Reports: headache (Chronic daily headaches). Denies: weakness, numbness, paresthesias, confusion Past Medical History Past Medical History: Hypertension, Seizure Disorder History of Any Multi-Drug Resistant Organisms: None Reported Past Surgical History: No Surgical Hx Reported Additional Past Surgical History / Comment(s): hernia mesh Past Psychological History: No Psychological Hx Reported Smoking Status: Former smoker Past Alcohol Use History: None Reported Past Drug Use History: None Reported General Exam Limitations: no limitations General appearance: alert, in no apparent distress Head exam: Present: atraumatic, normocephalic Eye exam: Present: normal appearance. Absent: scleral icterus, conjunctival injection ENT exam: Present: mucous membranes dry Neck exam: Present: normal inspection, full ROM. Absent: meningismus Respiratory exam: Present: normal lung sounds bilaterally. Absent: respiratory distress, wheezes, rales, rhonchi, stridor, accessory muscle use Cardiovascular Exam: Present: regular rate, normal rhythm, normal heart sounds. Absent: systolic murmur, diastolic murmur, rubs, gallop GI/Abdominal exam: Present: soft. Absent: distended, tenderness, guarding, rebound, rigid, mass Extremities exam: Present: normal inspection, normal capillary refill. Absent: pedal edema, calf tenderness Back exam: Present: normal inspection. Absent: CVA tenderness (R), CVA tenderness (L), vertebral tenderness Neurological exam: Present: alert, oriented X3, CN II-XII intact. Absent: motor sensory deficit Skin exam: Present: warm, dry, intact, normal color. Absent: rash Course Vital Signs 05/07/24 05/07/24 14:46 18:27 Temperature 98.0 F 97.6 F Pulse Rate 86 62 Respiratory 18 18 Rate Blood Pressure 104/72 135/90 O2 Sat by Pulse 100 97 Oximetry Medical Decision Making - Medical Decision Making Was pt. sent in by a medical professional or institution (MEY Alfaro, TRIM MASTER OPERATOR, urgent care, hospital, or [facility]...) When possible be specific @ -[No] Did you speak to anyone other than the patient for history (EMS, parent, family, police, friend...)? What history was obtained from this source @ -[No] Did you review nursing and triage notes (agree or disagree)? Why? @ -[I reviewed and agree with nursing and triage notes] Were old charts reviewed (outside hosp., previous admission, EMS record, old EKG, old radiological studies, urgent care reports/EKG's, [facility] records)? Report findings @ -[No old charts were reviewed] Differential Diagnosis (chest pain, altered mental status, abdominal pain women, abdominal pain men, vaginal bleeding, weakness, fever, dyspnea, syncope, headache, dizziness, GI bleed, back pain, seizure, CVA, palpatations, mental health, musculoskeletal)? @ -[Differential Seizure: Recurrent seizure disorder, febrile seizure, alcohol withdrawal, stimulants, meningitis, encephalitis, intercranial hemorrhage, intracranial tumor, stroke, eclampsia, thyrotoxicosis, hypocalcemia, hyponatremia, hypernatremia, hypomagnesemia, psychogenic, this is not meant to be an all-inclusive list. EKG interpreted by me (3pts min.). @ -[As above] X-rays interpreted by me (1pt min.). @ -[None done] CT interpreted by me (1pt min.). @ -[None done] U/S interpreted by me (1pt. min.). @ -[None done] What testing was considered but not performed or refused? (CT, X-rays, U/S, labs)? Why? @ -[None] What meds were considered but not given or refused? Why? @ -[None] Did you discuss the management of the patient with other professionals (professionals i.e. MEY Alfaro, TRIM MASTER OPERATOR, lab, RT, psych nurse, social welfare clerk, wheel cleaner, teacher, conservation science officer, heel caser)? Give summary @ -[No] Was smoking cessation discussed for >3mins.? @ -[No] Was critical care preformed (if so, how long)? @ -[No] Were there social determinants of health that impacted care today? How? (Homelessness, low income, unemployed, alcoholism, drug addiction, transportation, low edu. Level, literacy, decrease access to med. care, fci, rehab)? @ -[No] Was there de-escalation of care discussed even if they declined (Discuss DNR or withdrawal of care, Hospice)? DNR status @ -[No] What co-morbidities impacted this encounter? (DM, HTN, Smoking, COPD, CAD, Cancer, CVA, ARF, Chemo, Hep., AIDS, mental health diagnosis, sleep apnea, morbid obesity)? @ -[Seizure disorder Was patient admitted / discharged? Hospital course, mention meds given and route, prescriptions, significant lab abnormalities, going to OR and other [facility] info. @ -[Patient is 39-year-old man who is here following seizure at home and is found to have subtherapeutic Depakote level, he states he may have missed doses due to some generalized nausea patient did receive dose of medication here and he is stable at this time to continue as outpatient. Undiagnosed new problem with uncertain prognosis? @ -[No] Drug Therapy requiring intensive monitoring for toxicity (Heparin, Nitro, Insulin, Cardizem)? @ -[No] Were any procedures done? @ -[No] Diagnosis/symptom? @ -[Generalized seizure Subtherapeutic Depakote level Acute, or Chronic, or Acute on Chronic? @ -[Acute Uncomplicated (without systemic symptoms) or Complicated (systemic symptoms)? @ -[Uncomplicated Side effects of treatment? @ -[No] Exacerbation, Progression, or Severe Exacerbation? @ -[No] Poses a threat to life or bodily function? How? (Chest pain, [place], [place], pneumonia, PE, COPD, DKA, ARF, appy, cholecystitis, CVA, Diverticulitis, Homicidal, Suicidal, threat to staff... and all critical care pts) @ -[No] - Lab Data Result diagrams: 05/07/24 15:39 05/07/24 15:39 Lab Results 05/07/24 05/07/24 Range/Units 15:39 15:39 WBC 6.6 (3.8-10.6) k/uL RBC 5.15 (4.30-5.90) m/uL Hgb 15.5 (13.0-17.5) gm/dL Hct 47.4 (39.0-53.0) % MCV 91.9 (80.0-100.0) fL MCH 30.1 (25.0-35.0) pg MCHC 32.7 (31.0-37.0) g/dL RDW 11.7 (11.5-15.5) % Plt Count 227 (150-450) k/uL MPV 8.1 Neutrophils % 64 % Lymphocytes % 28 % Monocytes % 5 % Eosinophils % 1 % Basophils % 0 % Neutrophils # 4.2 (1.3-7.7) k/uL Lymphocytes # 1.9 (1.0-4.8) k/uL Monocytes # 0.4 (0-1.0) k/uL Eosinophils # 0.0 (0-0.7) k/uL Basophils # 0.0 (0-0.2) k/uL Sodium 136 L (137-145) mmol/L Potassium 4.0 (3.5-5.1) mmol/L Chloride 105 (98-107) mmol/L Carbon Dioxide 18 L (22-30) mmol/L Anion Gap 13 mmol/L BUN 19 (9-20) mg/dL Creatinine 1.41 H (0.66-1.25) mg/dL Est GFR (CKD-EPI)AfAm 72 (>60 ml/min/1.73 sqM) Est GFR (CKD-EPI)NonAf 62 (>60 ml/min/1.73 sqM) Glucose 104 H (74-99) mg/dL Calcium 9.5 (8.4-10.2) mg/dL Total Bilirubin 0.4 (0.2-1.3) mg/dL AST 19 (17-59) U/L ALT 12 (4-49) U/L Alkaline Phosphatase 59 (38-126) U/L Total Protein 7.1 (6.3-8.2) g/dL Albumin 4.6 (3.5-5.0) g/dL Amylase 54 (30-110) U/L Lipase 43 (23-300) U/L Valproic Acid 29.2 ug/mL Disposition Clinical Impression: Generalized seizure, Dehydration Disposition: HOME SELF-CARE Instructions (If sedation given, give patient instructions): Seizure/Epilepsy Discharge Instructions & Follow-Up, Acute Nausea and Vomiting (ED) Is patient prescribed a controlled substance at d/c from ED?: No Referrals: John Rivas MD [Primary Care Provider] - 1-2 days
[2024-05-07] MEDS: DIVALPROEX 500 MG TABLET.DR PO STA (16:36)
[2024-05-07] MEDS: SUMAtriptan succinate 6 MG/0.5 ML VIAL SQ STA (17:56)
[2024-05-07] MEDS: METOCLOPRAMIDE 5 MG/ML 2 ML VIAL IVP STA (17:56)
[2024-05-07 18:31] VITALS: BP 135/90; PULSE 62; TEMP 97.6
== END 2024-05-07 18:31 | disposition home or self-care (01) ==
LOC: EC 14:44
DX: G40.409 Other generalized epilepsy and epileptic syndromes, not intractable, without status epilepticus (principal); E86.0 Dehydration; Z87.891 Personal history of nicotine dependence
CPT/HCPCS: 36415; 93005; 80164; 80053; 82150; 83690; 85025; 99284; 96374; 96375; 96361; 96372; J3030; J2765; J2405

== ENCOUNTER 2025-02-11 15:19 | Emergency (ER) | payer OTHER ==
--- NOTE | 2025-02-11 16:47 | ED ---
Seizure HPI - General Chief Complaint: Seizure Stated Complaint: Dizziness, SOB Time Seen by Provider: 02/11/25 15:32 Source: patient, RN notes reviewed Mode of arrival: ambulatory Limitations: no limitations - History of Present Illness Initial Comments: This is a 39-year-old male with a history of epilepsy and hypertension presenting to the emergency department with complaints of a potential seizure. Patient states that yesterday evening he was at his friend's house asleep when his friend stated look like he was having a seizure as he was shaking during his sleep. Patient does not remember this event occurring. Currently, patient states that he has a mild headache and overall feels well. He states that he did not take his evening dose of Keppra or Topamax yesterday evening additionally has not taken his prescribed epileptic medications today. - Related Data Home Medications Medication Instructions Recorded Confirmed Butalb/Acetaminophen/Caffeine 1 tab PO Q8H PRN 12/19/23 12/22/23 [Fioricet 50-325-40] Ergocalciferol [Vitamin D2 (1250 1,250 mcg PO Q7D 12/19/23 12/22/23 Mcg = 93649 Iu)] Fluticasone Nasal [place] [Flonase 1 spr EA NOSTRIL DAILY 12/19/23 12/22/23 Nasal [place]] Loratadine [Claritin] 10 mg PO DAILY 12/19/23 12/22/23 Propranolol HCl [Propranolol HCl 80 mg PO DAILY 12/19/23 12/22/23 ER] Topiramate [Topamax] 100 mg PO BID 12/19/23 12/22/23 Valproic Acid [Depakene] 1,000 mg PO Q12H 12/19/23 12/22/23 levETIRAcetam [Keppra] 500 mg PO BID 12/19/23 12/22/23 Previous Rx's Medication Instructions Recorded Pantoprazole [Protonix] 40 mg PO AC-BRKFST tab 12/22/23 Mirtazapine [Remeron] 15 mg PO HS 30 Days #30 tab 12/25/23 Sertraline [Zoloft] 50 mg PO DAILY 30 Days #30 tab 12/25/23 Allergies Allergy/AdvReac Type Severity Reaction Status Date / Time No Known Allergies Allergy Verified 02/11/25 15:29 Review of Systems ROS Statement: Those systems with pertinent positive or pertinent negative responses have been documented in the HPI. ROS Other: All systems not noted in ROS Statement are negative. Past Medical History Past Medical History: Hypertension, Seizure Disorder History of Any Multi-Drug Resistant Organisms: None Reported Past Surgical History: No Surgical Hx Reported Additional Past Surgical History / Comment(s): hernia mesh Past Psychological History: No Psychological Hx Reported Smoking Status: Former smoker Past Alcohol Use History: None Reported Past Drug Use History: None Reported General Exam Limitations: no limitations General appearance: alert, in no apparent distress Eye exam: Present: normal appearance, PERRL, EOMI. Absent: scleral icterus, conjunctival injection, periorbital swelling Neck exam: Present: normal inspection. Absent: tenderness, meningismus, lymphadenopathy Respiratory exam: Present: normal lung sounds bilaterally. Absent: respiratory distress, wheezes, rales, rhonchi, stridor Cardiovascular Exam: Present: regular rate, normal rhythm, normal heart sounds. Absent: systolic murmur, diastolic murmur, rubs, gallop, clicks GI/Abdominal exam: Present: soft, normal bowel sounds. Absent: distended, tenderness, guarding, rebound, rigid Extremities exam: Present: normal inspection, full ROM, normal capillary refill. Absent: tenderness, pedal edema, joint swelling, calf tenderness Neurological exam: Present: alert, oriented X3, CN II-XII intact Course Vital Signs 02/11/25 02/11/25 15:24 19:15 Temperature 98.1 F 98.6 F Pulse Rate 110 H 94 Respiratory 17 18 Rate Blood Pressure 133/85 124/87 O2 Sat by Pulse 97 98 Oximetry Medical Decision Making - Medical Decision Making Was pt. sent in by a medical professional or institution (, PA, METAL CLEANER, urgent care, hospital, or [facility]...) When possible be specific @ -No Did you speak to anyone other than the patient for history (EMS, parent, family, police, friend...)? What history was obtained from this source @ -No Did you review nursing and triage notes (agree or disagree)? Why? @ -I reviewed and agree with nursing and triage notes Were old charts reviewed (outside hosp., previous admission, EMS record, old EKG, old radiological studies, urgent care reports/EKG's, [facility] records)? Report findings @ -No old charts were reviewed Differential Diagnosis (chest pain, altered mental status, abdominal pain women, abdominal pain men, vaginal bleeding, weakness, fever, dyspnea, syncope, headache, dizziness, GI bleed, back pain, seizure, CVA, palpatations, mental health, musculoskeletal)? @ -Differential Seizure: Recurrent seizure disorder, febrile seizure, alcohol withdrawal, stimulants, meningitis, encephalitis, intercranial hemorrhage, intracranial tumor, stroke, eclampsia, thyrotoxicosis, hypocalcemia, hyponatremia, hypernatremia, hypomagnesemia, psychogenic, this is not meant to be an all-inclusive list. EKG interpreted by me (3pts min.). @ -Completed at 1746 sinus rhythm with a ventricular rate of 90, parable 148, QRS 99, QTc 397. X-rays interpreted by me (1pt min.). @ -None done CT interpreted by me (1pt min.). @ -None done U/S interpreted by me (1pt. min.). @ -None done What testing was considered but not performed or refused? (CT, X-rays, U/S, labs)? Why? @ -None What meds were considered but not given or refused? Why? @ -None Did you discuss the management of the patient with other professionals (professionals i.e. , PA, METAL CLEANER, lab, RT, psych nurse, director social service, svp [employer], teacher, gift officer, corrections caseworker)? Give summary @ -No Was smoking cessation discussed for >3mins.? @ -No Was critical care preformed (if so, how long)? @ -No Were there social determinants of health that impacted care today? How? (Homelessness, low income, unemployed, alcoholism, drug addiction, tra nsportation, low edu. Level, literacy, decrease access to med. care, alf, rehab)? @ -No Was there de-escalation of care discussed even if they declined (Discuss DNR or withdrawal of care, Hospice)? DNR status @ -No What co-morbidities impacted this encounter? (DM, HTN, Smoking, COPD, CAD, Cancer, CVA, ARF, Chemo, Hep., AIDS, mental health diagnosis, sleep apnea, morbid obesity)? @ -None Was patient admitted / discharged? Hospital course, mention meds given and route, prescriptions, significant lab abnormalities, going to OR and other pertinent info. @ -Discharge. 39-year-old male presenting to emergency department after concern for potential seizure that occurred yesterday. On arrival patient's vitals are stable. Neurological examination with no acute deficits. Patient is alert and oriented x 4 no signs of acute distress. He is in bed with IV fluids. Laboratory test including CBC and CMP unremarkable. Patient has refused leave a urine sample. He is provided with loading dose of Keppra. While patient has been in the emergency department he has been well-appearing with no seizure activity. Recommend that patient continue to take antiepileptic medications as prescribed and follow-up with neurologist and primary care provider. Return parameters discussed. Case discussed with Dr. Jimenez. Undiagnosed new problem with uncertain prognosis? @ -No Drug Therapy requiring intensive monitoring for toxicity (Heparin, Nitro, Insulin, Cardizem)? @ -No Were any procedures done? @ -No Diagnosis/symptom? @ -History of seizure Acute, or Chronic, or Acute on Chronic? @ -Acute Uncomplicated (without systemic symptoms) or Complicated (systemic symptoms)? @ -Uncomplicated Side effects of treatment? @ -No Exacerbation, Progression, or Severe Exacerbation? @ -No Poses a threat to life or bodily function? How? (Chest pain, [place], [place], pneumonia, PE, COPD, DKA, ARF, appy, cholecystitis, CVA, Diverticulitis, Homicidal, Suicidal, threat to staff... and all critical care pts) @ -No - Lab Data Result diagrams: 02/11/25 17:57 02/11/25 17:57 Lab Results 02/11/25 02/11/25 Range/Units 17:57 17:57 WBC 7.72 (4.50-10.00) 10*3/uL RBC 4.61 (4.40-5.60) 10*6/uL Hgb 13.8 (13.0-17.0) g/dL Hct 40.3 (39.6-50.0) % MCV 87.4 (80.0-97.0) fL MCH 29.9 (27.0-32.0) pg MCHC 34.2 (32.0-37.0) g/dL Plt Count 280 (140-440) 10*3/uL MPV 8.7 L (9.5-12.2) fL Immature Gran % (Auto) 0.3 % Neutrophils % 66.4 % Lymphocytes % 24.6 % Monocytes % 7.3 % Eosinophils % 1.0 % Basophils % 0.4 % Immature Gran # 0.02 (0.00-0.04) 10*3/uL Neutrophils # 5.13 (1.80-7.70) 10*3/uL Lymphocytes # 1.90 (0.90-5.00) 10*3/uL Monocytes # 0.56 (0.20-1.00) 10*3/uL Eosinophils # 0.08 (0.04-0.35) 10*3/uL Basophils # 0.03 (0.00-0.10) 10*3/uL Sodium 136 L (137-145) mmol/L Potassium 3.5 (3.5-5.1) mmol/L Chloride 99 (98-107) mmol/L Carbon Dioxide 29 (22-30) mmol/L Anion Gap 8 mmol/L BUN 7 L (9-20) mg/dL Creatinine 0.70 (0.66-1.25) mg/dL Est GFR (CKD-EPI)AfAm >90 (>60 ml/min/1.73 sqM) Est GFR (CKD-EPI)NonAf >90 (>60 ml/min/1.73 sqM) Glucose 79 (74-99) mg/dL Calcium 10.1 (8.4-10.2) mg/dL Magnesium 2.2 (1.6-2.3) mg/dL Total Bilirubin 0.5 (0.2-1.3) mg/dL AST 28 (17-59) U/L ALT 21 (4-49) U/L Alkaline Phosphatase 55 (38-126) U/L Total Protein 7.2 (6.3-8.2) g/dL Albumin 4.7 (3.5-5.0) g/dL Disposition Clinical Impression: Seizure Disposition: HOME SELF-CARE Condition: Stable Instructions (If sedation given, give patient instructions): Recurrent Seizures in Adults (ED) Additional Instructions: Please return to the Emergency Department if symptoms worsen or any other concerns. Is patient prescribed a controlled substance at d/c from ED?: No Referrals: John Rivas MD [Primary Care Provider] - 1-2 days Time of Disposition: 19:02
[2025-02-11] MEDS: SODIUM CHLORIDE 0.9% 1,000 ML IV STA (18:04)
[2025-02-11 18:07] LABS: Basophils # (A) 0.03 10*3/uL (0.00-0.10); Basophils % (A) 0.4 %; Eosinophils # (A) 0.08 10*3/uL (0.04-0.35); HCT 40.3 % (39.6-50.0); HGB 13.8 g/dL (13.0-17.0); Lymphocytes % (A) 24.6 %; MCH 29.9 pg (27.0-32.0); MCHC 34.2 g/dL (32.0-37.0); MCV 87.4 fL (80.0-97.0); Mean Platelet Volume 8.7 fL (9.5-12.2); Monocytes # (A) 0.56 10*3/uL (0.20-1.00); Monocytes % (A) 7.3 %; Neutrophils # (A) 5.13 10*3/uL (1.80-7.70); Neutrophils % (A) 66.4 %; Platelet Count 280 10*3/uL (140-440); RBC 4.61 10*6/uL (4.40-5.60); RDW 12.2 % (11.5-14.5); WBC 7.72 10*3/uL (4.50-10.00)
[2025-02-11 18:26] LABS: ALT 21 U/L (4-49); AST 28 U/L (17-59); African American GFR (CKD) >90 (>60 ml/min/1.73 sqM); Albumin 4.7 g/dL (3.5-5.0); Alkaline Phosphatase 55 U/L (38-126); Anion Gap 8 mmol/L; Blood Urea Nitrogen 7 mg/dL (9-20); Calcium 10.1 mg/dL (8.4-10.2); Carbon Dioxide 29 mmol/L (22-30); Chloride 99 mmol/L (98-107); Glucose 79 mg/dL (74-99); Magnesium 2.2 mg/dL (1.6-2.3); Non-African American GFR(CKD) >90 (>60 ml/min/1.73 sqM); Potassium 3.5 mmol/L (3.5-5.1); Sodium 136 mmol/L (137-145); Total Bilirubin 0.5 mg/dL (0.2-1.3); Total Protein 7.2 g/dL (6.3-8.2)
[2025-02-11] MEDS: levETIRAcetam IV 500 MG/5 ML VIAL IVP STA (18:47)
[2025-02-11 19:17] VITALS: BP 124/87; PULSE 94; RESP 18; TEMP 98.6
== END 2025-02-11 19:27 | disposition home or self-care (01) ==
LOC: EC 15:19
DX: G40.909 Epilepsy, unspecified, not intractable, without status epilepticus (principal); Z87.891 Personal history of nicotine dependence
CPT/HCPCS: 36415; 93005; 80053; 83735; 85025; 99284; 96374; 96361; J1953